=== PATIENT | male | born 1950 | race Caucasian/White ===

== ENCOUNTER 2017-05-10 10:13 | Inpatient (IN) ==
--- NOTE | 2017-05-10 10:55 | Emergency Department Note ---
Wound/Laceration HPI - General Chief Complaint: Wound/Laceration Stated Complaint: toe wound Time Seen by Provider: 05/10/17 10:20 Source: patient Mode of arrival: ambulatory Limitations: no limitations - History of Present Illness HPI Narrative: 66-year-old male presents with left second toe that is purple and draining blood. States he is not diabetic but has neuropathy and saw Dr. Smart last Friday and had a callus removed on the plantar aspect of his foot. He has been having his changed the dressing and that has been going well but he has had swelling in his second and third toes for the last 2 or 3 days. He states that this morning his second toe was very swollen and he noticed it was purple. He states on the way here it started to burst open with bloody drainage. There is are also erythema to the dorsum of the foot. He states it feels better after its burst. He has not been taking antibiotics. He states the swelling in his lower extremity might be a little bit better. He has not had any vascular disease in his lower extremities but has had 4 bypasses and his heart. He takes Plavix for a possible stroke in 2013. - Related Data Home Medications Medication Instructions Recorded Confirmed Clopidogrel Bisulfate [Plavix] 75 mg PO DAILY 05/10/17 05/10/17 Losartan Potassium [Cozaar] 100 mg PO DAILY 05/10/17 05/10/17 Metoprolol Succinate [Toprol Xl] 12.5 mg PO DAILY 05/10/17 05/10/17 Simvastatin [Zocor] 40 mg PO HS 05/10/17 05/10/17 Allergies Allergy/AdvReac Type Severity Reaction Status Date / Time No Known Drug Allergies Allergy Unverified 05/10/17 11:06 Review of Systems All systems ED: reviewed and negative except as stated. Past Medical History - Past Medical History Medical history: Reports: coronary artery disease, hypertension Psychiatric history: Reports: no psych history Surgical history ED: Reports: coronary bypass (CABG), hip replacement, orthopedic, other (left ACL surgery) Family history: Reports: non-contributory - Social History smoking status: Former smoker Physical Exam Left foot shows circumferential discoloration of the second toe. This is a purple hue. There is a blister associated that is using sanguinous discharge. There is a smell of infection associated with it there is a 0.6 cm ulceration on the plantar aspect below the second toe nontender. The second toe is also cool on palpation. There is erythema extending up the forefoot. I was able to get a pulse with the Doppler. Nonpitting edema of the lower extremity Limitations: no limitations General appearance: alert, in no apparent distress Head: atraumatic Eye: Present: normal appearance. Absent: conjunctival injection Neck: Present: normal inspection, full ROM Chest: Present: normal inspection, symmetric chest wall rise Respiratory: Present: normal lung sounds bilaterally Cardiovascular: Present: regular rate, normal heart sounds Abdominal: Present: soft, normal bowel sounds. Absent: tenderness Neurological: Present: alert, oriented X3 Psychiatric: Present: normal affect, normal mood Skin: Present: warm, dry Course Vital Signs Temperature 97.3 F 05/10/17 10:14 Pulse Rate 73 05/10/17 10:14 Respiratory Rate 16 05/10/17 10:14 Blood Pressure 156/79 05/10/17 10:14 Pulse Oximetry (%) 97 05/10/17 10:14 Temperature 97.3 F 05/10/17 10:14 Pulse Rate 73 05/10/17 10:14 Respiratory Rate 16 05/10/17 10:14 Blood Pressure 156/79 05/10/17 10:14 Pulse Oximetry (%) 97 05/10/17 10:14 Wound/Laceration - MDM Narrative Medical decision making narrative: I talked with the patient about being diabetic since his hemoglobin A1c was 9.1 and his blood sugar today was 303. He states he has had blood work yearly and was may be borderline diabetic on his last check. His questions were answered regarding type 2 diabetes. I stated that he needed to have tight sugar control while in the hospital to help with healing. Dr. Barton saw the patient and will be doing surgery once the infection has improved. He will be admitted by the hospitalist - Lab Data Lab results reviewed: Yes I reviewed the patient's lab results. Result diagrams: 05/10/17 10:54 05/10/17 10:54 Lab Results 05/10/17 05/10/17 05/10/17 Range/Units 10:43 10:43 10:54 WBC 11.8 H (4.5-11.0) K/mcL RBC 4.33 L (4.50-5.90) M/mcL Hgb 13.6 (13.5-16.5) g/dL Hct 39.5 L (41.0-55.0) % MCV 91.2 (80.0-100.0) fL MCH 31.3 (26.0-34.0) pg MCHC 34.3 (31.0-36.0) g/dL RDW 12.5 (11.5-14.5) % Plt Count 264 (140-440) K/mcL MPV 7.6 (7.4-10.4) fL Total Counted 100 Seg Neutrophils % 83 H (38-78) % Band Neutrophils % 2 (0-10) % Lymphocytes % 9 L (15-49) % Monocytes % (Manual) 6 (1-12) % Platelet Estimate Normal (NORMAL) RBC Morphology Abnorm A (NORMAL) Polychromasia 1+ A (NONE SEEN) PT 14.2 (11.9-14.5) sec INR 1.1 (0.9-1.1) VBG Lactic Acid (0.5-2.2) mmol/L Sodium (133-145) mmol/L Potassium (3.3-5.1) mmol/L Chloride (96-108) mmol/L Carbon Dioxide (22-30) mmol/L Anion Gap (8-16) BUN (8-23) mg/dl Creatinine (0.7-1.2) mg/dl GFR Calculation Glucose (70-105) mg/dL Hemoglobin A1c 9.1 H (4.0-6.0) % HGB Estim Average Glucose 214 mg/dL Calcium (8.6-10.4) mg/dl Total Bilirubin (0.0-1.0) mg/dL AST (0-37) U/l ALT (0-40) U/l Alkaline Phosphatase (39-117) U/L C-Reactive Protein (0.0-0.8) mg/dl Total Protein (5.9-8.4) gm/dL Albumin (3.2-5.2) gm/dL Globulin (2.2-3.7) gm/dL Albumin/Globulin Ratio (1.0-2.3) TSH 1.42 (0.27-5.01) uIU/ml 05/10/17 05/10/17 Range/Units 10:54 10:54 WBC (4.5-11.0) K/mcL RBC (4.50-5.90) M/mcL Hgb (13.5-16.5) g/dL Hct (41.0-55.0) % MCV (80.0-100.0) fL MCH (26.0-34.0) pg MCHC (31.0-36.0) g/dL RDW (11.5-14.5) % Plt Count (140-440) K/mcL MPV (7.4-10.4) fL Total Counted Seg Neutrophils % (38-78) % Band Neutrophils % (0-10) % Lymphocytes % (15-49) % Monocytes % (Manual) (1-12) % Platelet Estimate (NORMAL) RBC Morphology (NORMAL) Polychromasia (NONE SEEN) PT (11.9-14.5) sec INR (0.9-1.1) VBG Lactic Acid 1.7 (0.5-2.2) mmol/L Sodium 132 L (133-145) mmol/L Potassium 4.1 (3.3-5.1) mmol/L Chloride 96 (96-108) mmol/L Carbon Dioxide 22 (22-30) mmol/L Anion Gap 14.0 (8-16) BUN 10 (8-23) mg/dl Creatinine 0.8 (0.7-1.2) mg/dl GFR Calculation 92 Glucose 330 H (70-105) mg/dL Hemoglobin A1c (4.0-6.0) % HGB Estim Average Glucose mg/dL Calcium 9.0 (8.6-10.4) mg/dl Total Bilirubin 0.8 (0.0-1.0) mg/dL AST 10 (0-37) U/l ALT 12 (0-40) U/l Alkaline Phosphatase 51 (39-117) U/L C-Reactive Protein 29.8 H (0.0-0.8) mg/dl Total Protein 6.6 (5.9-8.4) gm/dL Albumin 3.3 (3.2-5.2) gm/dL Globulin 3.3 (2.2-3.7) gm/dL Albumin/Globulin Ratio 1.0 (1.0-2.3) TSH (0.27-5.01) uIU/ml - Radiology Data Radiology results reviewed: Yes I reviewed the patient's radiology results. No evidence of osteo Disposition Pt seen by MOTOR VEHICLES SUPERVISOR/PA only: No Clinical Impression: New onset type 2 diabetes mellitus, Gangrene due to peripheral vascular disease , Diabetic foot infection Disposition: Xfer As Inpt ([facility]) Condition: Fair
[2017-05-10 11:27] LABS: Mean Cell Volume 91.2 fL (80.0-100.0); Mean Corpuscular HGB Conc 34.3 g/dL (31.0-36.0); Mean Corpuscular Hemoglobin 31.3 pg (26.0-34.0); Platelet Count 264 K/mcL (140-440); RBC 4.33 M/mcL (4.50-5.90); Red Cell Distribution Width 12.5 % (11.5-14.5)
[2017-05-10] MEDS ORDERED: VANCOMYCIN 1,000 MG in 0.9 % SODIUM CHLORIDE 250 ML IV ONE (11:38)
[2017-05-10 11:44] LABS: Estimated Average Glucose(eAG) 214 mg/dL; Hemoglobin A1C 9.1 % HGB (4.0-6.0)
--- NOTE | 2017-05-10 11:46 | XRay Report ---
CLINICAL INFORMATION: Second toe infection COMPARISON: None. FINDINGS: There is no specific radiographic evidence for osteomyelitis. Mild metatarsus abductus appreciated. 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 Moderate degenerative changes noted in the talonavicular joint with dorsal marginal spurring. Other Joint spaces are normal in width and alignment without arthritic change. There is mild forefoot soft tissue swelling. IMPRESSION: No specific radiographic evidence of osteomyelitis. 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 Please correlate with hindfoot immobility on physical exam. Other chronic changes - as described Interpreted and Authenticated by: Dre Shaw 05/10/17
[2017-05-10 11:47] LABS: ALT/SGPT 12 U/l (0-40); Albumin 3.3 gm/dL (3.2-5.2); Alkaline Phosphatase 51 U/L (39-117); Band Neutrophils % 2 % (0-10); Blood Urea Nitrogen 10 mg/dl (8-23); C-Reactive Protein 29.8 mg/dl (0.0-0.8); Lymphocytes % 9 % (15-49); Monocytes % (Manual) 6 % (1-12); Platelet Estimate NORMAL (NORMAL); RBC Morphology ABNORM (NORMAL); Segmented Neutrophils % 83 % (38-78)
[2017-05-10] MEDS ORDERED: INSULIN REGULAR, HUMAN 1 UNIT/0.01 ML UNIT SQ ONE ×2 (12:14→12:16)
--- NOTE | 2017-05-10 12:49 | Internal Med History&Physical ---
Medical - H&P: HPI Patient information: Note initiated : 05/10/17 at 12:46 pm Service Date, if different from initiated Date: [] Patient: Cecy Mendoza 66 y/o M admitted on for toe wound. Chief Complaint: [] History of present illness: Mr. Mendoza is a 66 year old man who apparently visited with podiatry 4 days ago for a callus on his foot, and had that filed down. Over the last 2 or 3 days she has had increased swelling of his foot and second and third toes, and today the second toe was purple, so he presented to the emergency room for evaluation. The patient is a very poor historian. He says he has had a callus on the bottom of his foot with a hole in it for several weeks. He saw a sap senior developer last week who filed it down, and he said he almost immediately started having pain and swelling by the next day. He has been keeping the foot elevated hoping that would help. When he awakened this morning his foot was even more swollen and red, and his second toe had turned blue. He says it has been quite painful for the past [address] into the emergency room he started to have bloody drainage from the toe. Otherwise, he does not think he has been having fever or chills. He does have intermittent headaches, for which she has been taking Tylenol and Aleve, but it is not clear how chronic those are. Patient does not have a primary care doctor. He says his previous doctor retired about 5 years ago and he never got a new doctor. He does check in with his denture laboratory technician once a year or so. That is now Dr. Nobles over in [place]. He says no one has ever told him in the past that his blood sugar was elevated. Patient denies known history of diabetes, but ER evaluation reveals marked hyperglycemia and elevated hemoglobin A1c today. He otherwise denies skin changes, new ear symptoms or sinus symptoms, sore throat or cough, chest pain or palpitations. He does have mild dyspnea on exertion, which is chronic. He denies abdominal pain, nausea or vomiting, constipation or bright red blood per rectum. He notes he did have diarrhea about 2 weeks ago but that resolved. He denies dysuria. Past medical history: Coronary artery disease, status post MS in 2007, followed by four-vessel bypass. Hypertension obesity Hyperlipidemia ? TIA Surgical history: Coronary artery bypass Hip replacement Left ACL surgery Medications: Aspirin 81 mg daily Plavix 75 mg daily Losartan 100 mg daily Metoprolol 12.5 mg daily Zocor 40 mg nightly Allergies: No known drug allergies Family history: Patient said his mother had heart disease, but lived to be 90. His father in his 90s and also had a history of heart disease. His brother had some kind of stomach cancer. He has a sister but cannot recall her medical history. Social history: Patient says he smoked from the age of 16 until about 38 and then quit. He drinks about 2 beers per day. He does not use drugs. He lives with his . He has 2 children who live in [place]. Medical - H&P: Meds Home Medications Medication Instructions Recorded Confirmed Type Aspirin [Adult Low Dose Aspirin EC] 81 mg PO DAILY 05/10/17 05/10/17 History Clopidogrel Bisulfate [Plavix] 75 mg PO DAILY 05/10/17 05/10/17 History Losartan Potassium [Cozaar] 100 mg PO DAILY 05/10/17 05/10/17 History Metoprolol Succinate [Toprol Xl] 12.5 mg PO DAILY 05/10/17 05/10/17 History Simvastatin [Zocor] 40 mg PO HS 05/10/17 05/10/17 History Allergies Allergy/AdvReac Type Severity Reaction Status Date / Time No Known Drug Allergies Allergy Unverified 05/10/17 11:06 Medical - H&P: Exam - Constitutional Vitals: Temp Pulse Resp BP Pulse Ox 97.3 F 73 16 156/79 97 05/10/17 10:14 05/10/17 10:14 05/10/17 10:14 05/10/17 10:14 05/10/17 10:14 On exam, he is an elderly overweight white male in no acute distress. Head: Normocephalic, atraumatic. Eyes: PERRLA, EOMI, anicteric. Ears: TMs and canals are clear. Pharynx: Teeth are in good repair. Pharynx is somewhat crowded. Mucosa appears normal. Neck: Circumference is very large. There is no obvious JVD, thyromegaly, lymphadenopathy, bruits. Cardiac exam: Shows regular rate and rhythm with normal S1 and S2, without murmurs, rubs, gallops. Lungs: Clear to auscultation, without rales, rhonchi, wheezes. Abdomen: Is obese, but soft and nontender, without obvious masses. Extremities: Lower extremity shows no significant skin cyanosis, clubbing, edema. [place] left lower extremity: Left foot is markedly swollen, red, hot to the touch. Toe is black and necrotic appearing. Sole of the foot shows a shallow ulcer over the second or third metatarsal head. Neurologic: Patient is alert and oriented. Cranial nerves are grossly intact. Motor exam is grossly nonfocal. Skin exam: Other than his foot, shows no obvious rashes or other worrisome lesions. Medical - H&P: Reslt - Labs CBC & Chem 7: 05/10/17 10:54 05/10/17 10:54 Labs: Short CBC 05/10/17 Range/Units 10:54 WBC 11.8 H (4.5-11.0) K/mcL Hgb 13.6 (13.5-16.5) g/dL Hct 39.5 L (41.0-55.0) % Plt Count 264 (140-440) K/mcL BMP 05/10/17 10:54 Sodium 132 L Potassium 4.1 Chloride 96 Carbon Dioxide 22 BUN 10 Creatinine 0.8 Glucose 330 H Calcium 9.0 Liver Function 05/10/17 Range/Units 10:54 Total Bilirubin 0.8 (0.0-1.0) mg/dL AST 10 (0-37) U/l ALT 12 (0-40) U/l Alkaline Phosphatase 51 (39-117) U/L Albumin 3.3 (3.2-5.2) gm/dL May 10: Pro time 14, INR 1.1 next Lactic acid is normal at 1.7 Hemoglobin A1c elevated at 9.1% CRP is elevated at 29 TSH normal at 1.42 Gram stain of toe discharge: Is rare polys, many red blood cells, rare gram- positive cocci in pairs X X-ray of the left foot: 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 Signs of osteomyelitis. Medical - H&P: A/P (1) Cellulitis in diabetic foot Current visit: Yes Status: Acute (2) New onset type 2 diabetes mellitus Current visit: Yes Status: Acute (3) Coronary artery disease Current visit: Yes Status: Chronic (4) Hypertension Current visit: Yes Status: Chronic (5) Obesity (BMI 30-39.9) Current visit: Yes Status: Chronic - Narrative A/P Narrative: #1. Infectious disease. Patient presents with signs and symptoms of acute foot cellulitis, likely related to recent podiatric surgery. He now appears to have possible gangrene of the second toe. -Admit for IV antibiotics, Zosyn plus vancomycin pending cultures.. -Patient has been evaluated by , who will likely do surgery tomorrow or Friday. -Wound care -Serial labs. 2. Endocrine. Patient presents with previously undiagnosed diabetes, likely type II, with marked hyperglycemia and associated pseudohyponatremia. -Start Lantus plus sliding scale insulin. Be able to transition him to other oral hypoglycemics prior to discharge. -Start metformin. -diabetes education, nutrition education. -Obesity should also be addressed. 3. Cardiac. History of coronary disease and hypertension. -Continue losartan, metoprolol, Zocor. -Consider holding Plavix prior to surgery. Resume as soon as possible. Subcu heparin in the meantime. -Patient reports he also takes a baby aspirin every day. -Continue above medications for hypertension. Monitor. 4. CODE STATUS: No code. His will act as his POA. 5. DVT prophylaxis: Subcu heparin. 6. Obesity Patient is at increased risk for obesity related illnesses, such as sleep apnea. He is strongly encouraged to establish care with a new primary care physician, and to have testing for this. Today's visit took approximately 60 minutes, to review his case with the ER MD, review test results, interview and examine him, and write orders.
[2017-05-10] MEDS ORDERED: INSULIN REGULAR, HUMAN 1 UNIT/0.01 ML UNIT ONE (12:58)
[2017-05-10] MEDS: 0.9 % SODIUM CHLORIDE 1,000 ML IV SCH ×2 (14:07→17:13)
[2017-05-10] MEDS ORDERED: ALBUTEROL SULFATE 2.5 MG/3 ML NEBULIZER NEB PRN (14:49)
[2017-05-10] MEDS ORDERED: DOCUSATE SODIUM 100 MG CAPSULE PO PRN (14:49)
[2017-05-10] MEDS ORDERED: ACETAMINOPHEN 325 MG TABLET PO PRN (14:49)
[2017-05-10] MEDS ORDERED: MAGNESIUM HYDROXIDE 30 ML ORAL.SUSP PO PRN (14:49)
[2017-05-10] MEDS ORDERED: DEXTROSE 31 GM ORAL.SUSP PO PRN (14:49)
[2017-05-10] MEDS ORDERED: HYDROcodone/APAP 5/325MG TABLET PO PRN (14:49)
[2017-05-10] MEDS ORDERED: CALCIUM CARBONATE 500 MG TAB.CHEW CHEWED PRN (14:49)
[2017-05-10] MEDS ORDERED: DEXTROSE 50% 50 ML VIAL IV PRN (14:49)
[2017-05-10] MEDS ORDERED: VANCOMYCIN PER PHARMACY IV SCH (14:49)
[2017-05-10] MEDS ORDERED: VANCOMYCIN 500 MG in 0.9 % SODIUM CHLORIDE 100 ML IV ONE (15:15)
[2017-05-10] MEDS: POTASSIUM CHLORIDE 20 MEQ in 0.45 % SODIUM CHLORIDE 1,000 ML IV SCH (15:42)
[2017-05-10] MEDS: INSULIN GLARGINE, HUMAN 1 UNIT/0.01 ML SQ SCH ×2 (16:01→20:17)
[2017-05-10] MEDS: INSULIN LISPRO 1 UNIT/0.01 ML UNIT SQ SCH ×3 (16:01→22:56)
[2017-05-10] MEDS: 0.9 % SODIUM CHLORIDE 10 ML SYRINGE IV SCH ×2 (16:01→20:26)
[2017-05-10] MEDS: metFORMIN 500 MG TABLET PO SCH (17:04)
[2017-05-10] MEDS: PIPERACILLIN SODIUM/TAZOBACTAM 3.375 GM in DEXTROSE 5% IN WATER 50 ML IV SCH ×3 (17:05→23:46)
--- NOTE | 2017-05-10 18:49 | General Surgery Consult Note ---
History of Present Illness Patient information: Note initiated : 05/10/17 at 6:47 pm Service Date, if different from initiated Date: [] Patient: Cecy Mendoza 66 y/o M admitted on 05/10/17 for toe wound. Chief Complaint: [] Consult date: 05/10/17 Reason for consult: wound care (SEPSIS. CSSSI Left foot with cellulitis extending up to ankle and infected plantar neuropathic ulcer under 2 toe with wet gangrene of toe.) Requesting physician: Deanna Grant History of present illness: Patient underwent a debridement of a neuropathic DFU and callous under LEFT anterior plantar aspect of mid foot 4 days ago. This resulted in soft tissue swelling, pain and discomfort with drainage of hemo serous fluid from base of 2nd toe. The toe became purple and gangrenous. Patient has h/o of GA in 2007 followed by CABG and possible TIA in past. He is on Plavix. He denies knowledge of being a diabetic. I saw him for a consult in ER along with PA this afternoon. He is now admitted to hospitalist service and started on IV antibiotics, insulin coverage for his untreated diabetes, At this time wound care will consist of topical Betadine ointment and dry gauze dressings along with pain management and elevation of foot. NWB on left foot . I spoke with patient and his at length about INITIAL management to control blood sugars, hydration and IV antibiotics. To be followed by surgery later and with HBO before or after surgery. Following him closely and monitoring progress. Medications and Allergies Home Medications Medication Instructions Recorded Confirmed Type Aspirin [Adult Low Dose Aspirin EC] 81 mg PO DAILY 05/10/17 05/10/17 History Clopidogrel Bisulfate [Plavix] 75 mg PO DAILY 05/10/17 05/10/17 History Losartan Potassium [Cozaar] 100 mg PO DAILY 05/10/17 05/10/17 History Metoprolol Succinate [Toprol Xl] 12.5 mg PO DAILY 05/10/17 05/10/17 History Simvastatin [Zocor] 40 mg PO HS 05/10/17 05/10/17 History Allergies Allergy/AdvReac Type Severity Reaction Status Date / Time No Known Drug Allergies Allergy Unverified 05/10/17 11:06 Exam Temp Pulse Resp BP Pulse Ox 97.7 F 76 18 146/81 99 05/10/17 16:00 05/10/17 16:00 05/10/17 16:00 05/10/17 16:00 05/10/17 16:00 - General physical appearance well developed, well nourished, no distress, obese - Eyes PERRL, normal ocular movement - ENT normal pinna, normal nares, normal mucosa, no congestion - Head Head exam IM: Present: atraumatic, normal inspection, normocephalic - Neck no masses, no bruits, trachea midline, no venous distension - Cardiovascular Cardiovascular exam IM: Present: normal rate and rhythm - Respiratory normal expansion, normal respiratory effort, clear to auscultation - Abdomen Abdomen: Present: soft, non tender, bowel sounds - Integumentary Present: other (CELLULITIS LEFT FOOT with infected left anterior plantar neuropathic ulcer and wet gangrene of second toe,) - Neurologic Present: other (Uncontrolled diabetes with neuropathy . NO focal localizing neurological findings. Detailed examination NOT done.) - Musculoskeletal Present: other (NON weight bearing LEFT foot . Infected DFU plantar LEFT antrior .) - Psychiatric Present: oriented to time, oriented to person, oriented to place, speech is normal, other (DENIES knowledge of being a diabetic. NO PCP for over past few years. ) Results - Labs 05/10/17 10:54 05/10/17 10:54 Abnormal lab results 05/10/17 05/10/17 05/10/17 Range/Units 10:43 10:54 10:54 WBC 11.8 H (4.5-11.0) K/mcL RBC 4.33 L (4.50-5.90) M/mcL Hct 39.5 L (41.0-55.0) % Seg Neutrophils % 83 H (38-78) % Lymphocytes % 9 L (15-49) % RBC Morphology Abnorm A (NORMAL) Polychromasia 1+ A (NONE SEEN) Sodium 132 L (133-145) mmol/L Glucose 330 H (70-105) mg/dL Hemoglobin A1c 9.1 H (4.0-6.0) % HGB C-Reactive Protein 29.8 H (0.0-0.8) mg/dl Diabetes panel 05/10/17 05/10/17 Range/Units 10:43 10:54 Sodium 132 L (133-145) mmol/L Potassium 4.1 (3.3-5.1) mmol/L Chloride 96 (96-108) mmol/L Carbon Dioxide 22 (22-30) mmol/L BUN 10 (8-23) mg/dl Creatinine 0.8 (0.7-1.2) mg/dl Glucose 330 H (70-105) mg/dL Hemoglobin A1c 9.1 H (4.0-6.0) % HGB Calcium 9.0 (8.6-10.4) mg/dl AST 10 (0-37) U/l ALT 12 (0-40) U/l Alkaline Phosphatase 51 (39-117) U/L Total Protein 6.6 (5.9-8.4) gm/dL Albumin 3.3 (3.2-5.2) gm/dL Thyroid panel 05/10/17 Range/Units 10:43 TSH 1.42 (0.27-5.01) uIU/ml Calcium panel 05/10/17 Range/Units 10:54 Calcium 9.0 (8.6-10.4) mg/dl Albumin 3.3 (3.2-5.2) gm/dL Pituitary panel 05/10/17 05/10/17 Range/Units 10:43 10:54 Sodium 132 L (133-145) mmol/L Potassium 4.1 (3.3-5.1) mmol/L Chloride 96 (96-108) mmol/L Carbon Dioxide 22 (22-30) mmol/L BUN 10 (8-23) mg/dl Creatinine 0.8 (0.7-1.2) mg/dl Glucose 330 H (70-105) mg/dL Calcium 9.0 (8.6-10.4) mg/dl TSH 1.42 (0.27-5.01) uIU/ml Adrenal panel 05/10/17 Range/Units 10:54 Sodium 132 L (133-145) mmol/L Potassium 4.1 (3.3-5.1) mmol/L Chloride 96 (96-108) mmol/L Carbon Dioxide 22 (22-30) mmol/L BUN 10 (8-23) mg/dl Creatinine 0.8 (0.7-1.2) mg/dl Glucose 330 H (70-105) mg/dL Calcium 9.0 (8.6-10.4) mg/dl Total Bilirubin 0.8 (0.0-1.0) mg/dL AST 10 (0-37) U/l ALT 12 (0-40) U/l Alkaline Phosphatase 51 (39-117) U/L Total Protein 6.6 (5.9-8.4) gm/dL Albumin 3.3 (3.2-5.2) gm/dL All other labs normal. Assessment and Plan (1) Sepsis due to cellulitis Status: Acute Priority: High (2) Sepsis due to cellulitis Assessment: Sepsis syndrome due to CSSSI infected DFU, Cellulitis and Gangrene of left second toe. Plan: See orders: IV fluids, IV antibiotics, Local wound care . Monitor progress preoperatively to be followed by surgery . Spoke with patient and his about plan of treatment. Risk, benefits and complications discussed at length. Further instructions and recommendations as condition evolves. Status: Acute Priority: High Comment: Patient with preexisting co morbidities, uncontrolled diabetes and is on anticoagulants with plavix.
[2017-05-10] MEDS: HYDROmorphone 2 MG/ML SYRINGE IV PRN (19:09)
[2017-05-10] MEDS ORDERED: HYDROmorphone 2 MG/ML SYRINGE ONE (19:13)
[2017-05-10] MEDS: oxyCODONE/APAP 5/325MG TABLET PO PRN ×2 (19:53→23:47)
[2017-05-10] MEDS: SIMVASTATIN 40 MG TABLET PO SCH (20:20)
[2017-05-10] MEDS ORDERED: BISACODYL 5 MG TABLET PO SCH (21:00)
[2017-05-10] MEDS ORDERED: HEPARIN 5,000 UNIT/ML VIAL SQ SCH (21:00)
[2017-05-10] MEDS: ZOLPIDEM 5 MG TABLET PO PRN ×2 (21:45→23:00)
[2017-05-10] MEDS: ONDANSETRON 4 MG/2 ML VIAL IV PRN (21:53)
[2017-05-11] MEDS: VANCOMYCIN 1,500 MG in 0.9 % SODIUM CHLORIDE 500 ML IV SCH ×3 (00:24→20:16)
[2017-05-11] MEDS: POTASSIUM CHLORIDE 20 MEQ in 0.45 % SODIUM CHLORIDE 1,000 ML IV SCH ×4 (00:35→16:29)
[2017-05-11] MEDS: HYDROmorphone 2 MG/ML SYRINGE IV PRN ×2 (02:30→22:18)
[2017-05-11] MEDS: INSULIN LISPRO 1 UNIT/0.01 ML UNIT SQ SCH ×6 (02:35→20:34)
[2017-05-11] MEDS: oxyCODONE/APAP 5/325MG TABLET PO PRN ×4 (03:59→23:52)
[2017-05-11] MEDS: PIPERACILLIN SODIUM/TAZOBACTAM 3.375 GM in DEXTROSE 5% IN WATER 50 ML IV SCH ×4 (05:54→23:52)
[2017-05-11] MEDS: 0.9 % SODIUM CHLORIDE 10 ML SYRINGE IV SCH ×3 (05:56→20:35)
[2017-05-11 06:23] LABS: Basophils # (Auto) 0 K/mcL (0.0-0.3); Basophils % (Auto) 0.1 % (0.0-2.0); Eosinophils # (Auto) 0.2 K/mcL (0.0-0.7); Eosinophils % (Auto) 1.4 % (0.0-7.0); Granulocytes % (Auto) 81.4 % (38.0-78.0); Lymphocytes # (Auto) 1.2 K/mcL (1.5-4.8); Lymphocytes % (Auto) 10.4 % (15.5-49.0); Mean Cell Volume 92.3 fL (80.0-100.0); Mean Corpuscular HGB Conc 34.2 g/dL (31.0-36.0); Mean Corpuscular Hemoglobin 31.6 pg (26.0-34.0); Monocytes # (Auto) 0.7 K/mcL (0.1-0.9); Monocytes % (Auto) 6.7 % (1.0-12.0); Platelet Count 263 K/mcL (140-440); RBC 3.79 M/mcL (4.50-5.90); Red Cell Distribution Width 12.6 % (11.5-14.5)
[2017-05-11 06:51] LABS: ALT/SGPT 11 U/l (0-40); Albumin 2.6 gm/dL (3.2-5.2); Albumin/Globulin Ratio 0.8 (1.0-2.3); Alkaline Phosphatase 52 U/L (39-117); Bilirubin,Direct < 0.2 mg/dL (0.0-0.3); Blood Urea Nitrogen 9 mg/dl (8-23); C-Reactive Protein 27.4 mg/dl (0.0-0.8); Gamma Glutamyl Transpeptidase 44 U/L (8-61); Magnesium 1.7 mg/dL (1.6-2.5); Uric Acid 2.5 mg/dL (2.5-8.0)
[2017-05-11] MEDS: ONDANSETRON 4 MG/2 ML VIAL IV PRN (07:37)
[2017-05-11] MEDS: METOPROLOL SUCCINATE 25 MG TAB.XL.24H PO SCH (08:50)
[2017-05-11] MEDS: LOSARTAN 50 MG TABLET PO SCH (08:50)
[2017-05-11] MEDS: CLOPIDOGREL 75 MG TABLET PO SCH ×2 (08:50→10:29)
[2017-05-11] MEDS: INSULIN GLARGINE, HUMAN 1 UNIT/0.01 ML SQ SCH ×2 (08:51→20:33)
[2017-05-11] MEDS: metFORMIN 500 MG TABLET PO SCH ×2 (08:51→17:30)
--- NOTE | 2017-05-11 11:33 | Internal Med Progress Note ---
Medical - PN: Subj Patient information: Note initiated : 05/11/17 at 11:33 am Service Date, if different from initiated Date: [] Patient: Cecy Mendoza 66 y/o M admitted on 05/10/17 for toe wound. Chief Complaint: [] Interval history: May 10, 2017: History of present illness: Mr. Mendoza is a 66 year old man who apparently visited with podiatry 4 days ago for a callus on his foot, and had that filed down. Over the last 2 or 3 days she has had increased swelling of his foot and second and third toes, and today the second toe was purple, so he presented to the emergency room for evaluation. The patient is a very poor historian. He says he has had a callus on the bottom of his foot with a hole in it for several weeks. He saw a hospice bereavement coordinator last week who filed it down, and he said he almost immediately started having pain and swelling by the next day. He has been keeping the foot elevated hoping that would help. When he awakened this morning his foot was even more swollen and red, and his second toe had turned blue. He says it has been quite painful for the past [address] into the emergency room he started to have bloody drainage from the toe. Otherwise, he does not think he has been having fever or chills. He does have intermittent headaches, for which she has been taking Tylenol and Aleve, but it is not clear how chronic those are. Patient does not have a primary care doctor. He says his previous doctor retired about 5 years ago and he never got a new doctor. He does check in with his manager private once a year or so. That is now Dr. Nobles over in [place]. He says no one has ever told him in the past that his blood sugar was elevated. Patient denies known history of diabetes, but ER evaluation reveals marked hyperglycemia and elevated hemoglobin A1c today. He otherwise denies skin changes, new ear symptoms or sinus symptoms, sore throat or cough, chest pain or palpitations. He does have mild dyspnea on exertion, which is chronic. He denies abdominal pain, nausea or vomiting, constipation or bright red blood per rectum. He notes he did have diarrhea about 2 weeks ago but that resolved. He denies dysuria. May 11: Today, the patient notes that he felt quite queasy after breakfast, and vomited his breakfast back up. Otherwise, he says he is feeling okay. Left foot pain is well controlled. He denies fever or chills, chest pain or palpitations, shortness of breath or cough , abdominal pain, diarrhea, dysuria. - Constitutional Vitals: Vital Signs Temp Pulse Resp BP Pulse Ox 98.1 F 77 12 116/73 95 05/11/17 07:44 05/11/17 07:44 05/11/17 07:44 05/11/17 07:44 05/11/17 07:44 Period Temp Pulse Resp BP Sys/Buchanan Pulse Ox Last 24 Hr 97.7 F-100.2 F 63-86 12-20 105-168/64-81 93-100 Intake and Output 05/10/17 05/11/17 05/11/17 21:59 05:59 13:59 Intake Total 2120 / 2120 2535 / 2535 800 / 800 Output Total 1900 / 1900 800 / 800 300 / 300 Balance 220 / 220 1735 / 1735 500 / 500 Weight 285 lb Intake & Output: Intake & Output 05/10/17 05/11/17 05/11/17 21:59 05:59 13:59 Intake Total 2120 / 2120 2535 / 2535 800 / 800 Output Total 1900 / 1900 800 / 800 300 / 300 Balance 220 / 220 1735 / 1735 500 / 500 Weight 285 lb Intake: IV 1200 / 1200 1560 / 1560 Zosyn 3.375 gm In Dextrose 5% 100 / 100 50 / 50 in Water 50 ml @ 100 mls/hr IV Q6H [facility] Rx#:[id number] Potassium Chloride 20 Meq In 1010 / 1010 Sodium Chloride 0.45% 1,000 ml @ 125 mls/hr IV .Q8H5M [facility] Rx#: [id number] Vancomycin 500 mg In Sodium 100 / 100 Chloride 0.9% 100 ml @ 100 mls/ hr IV ONCE ONE Rx#:[id number] Vancomycin 1,500 mg In Sodium 500 / 500 Chloride 0.9% 500 ml @ 333.3 mls/hr IV Q12H [facility] Rx#: [id number] Oral 920 / 920 975 / 975 800 / 800 Output: Void Amount 1700 / 1700 800 / 800 Emesis 200 / 200 300 / 300 Other: Meal Dinner Breakfast Percent of Meal Consumed 100% 75% Feeding Ability Independent # Voids 1 1 On exam, he is sitting up in a chair, with his left foot elevated. He is in no acute distress. Neck is supple without obvious lymphadenopathy or JVD. Cardiac exam shows regular rate and rhythm. Lungs are clear to auscultation. Abdomen is obese, but soft and nontender. Extremities: Right foot appears normal. Left foot: Is still quite swollen, with a necrotic appearing second toe. The erythema of the foot dorsum does appear a bit fainter today. Neurologic exam is grossly nonfocal. Medical - PN: Obj Da - Labs CBC & Chem 7: 05/11/17 04:00 05/11/17 04:00 Labs: Abnormal Lab Results 05/11/17 05/11/17 05/10/17 04:00 04:00 10:54 WBC 11.2 H RBC 3.79 L Hgb 12.0 L Hct 34.9 L Gran % 81.4 H Lymph % (Auto) 10.4 L Gran # 9.1 H Lymph # (Auto) 1.2 L Seg Neutrophils % Lymphocytes % RBC Morphology Polychromasia Sodium 131 L 132 L Glucose 234 H 330 H Hemoglobin A1c Calcium 8.2 L C-Reactive Protein 27.4 H 29.8 H Albumin 2.6 L Albumin/Globulin Ratio 0.8 L 05/10/17 05/10/17 10:54 10:43 WBC 11.8 H RBC 4.33 L Hgb Hct 39.5 L Gran % Lymph % (Auto) Gran # Lymph # (Auto) Seg Neutrophils % 83 H Lymphocytes % 9 L RBC Morphology Abnorm A Polychromasia 1+ A Sodium Glucose Hemoglobin A1c 9.1 H Calcium C-Reactive Protein Albumin Albumin/Globulin Ratio May 10: CBC: White blood cell count 11,800, hematocrit 39, platelets 264,000. 83% neutrophils. 1+ polychromasia Pro time 14, INR 1.1 next Lactic acid is normal at 1.7 Hemoglobin A1c elevated at 9.1% CRP is elevated at 29 TSH normal at 1.42 Gram stain of toe discharge: Is rare polys, many red blood cells, rare gram- positive cocci in pairs X X-ray of the left foot: 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 Signs of osteomyelitis. Meds: Medications Acetaminophen (Tylenol) 650 mg PO Q6HP PRN PRN Reason: PAIN/FEVER > 101 Albuterol Sulfate (Ventolin) 2.5 mg NEB Q2HP PRN PRN Reason: Shortness Of Breath Calcium Carbonate/Glycine (Tums) 1,000 mg CHEWED Q4HP PRN PRN Reason: Dyspepsia Clopidogrel Bisulfate (Plavix) 75 mg PO DAILY [facility] Last Admin: 05/11/17 10:29 Dose: 75 mg Dextrose (Dextrose 50%) 0 ml IV UD PRN PRN Reason: Hypoglycemia Diagnostic Test (Pha) (Accu-Chek) 1 each FS ACHS [facility] Last Admin: 05/11/17 07:38 Dose: 1 each Docusate Sodium (Colace) 100 mg PO BID PRN PRN Reason: Constipation Glucose (Insta-Glucose) 15 gm PO PRN PRN PRN Reason: Hypoglycemia Hydromorphone HCl (Dilaudid) 0.5 mg IV Q6HP PRN PRN Reason: PAIN LEVEL > 6 Last Admin: 05/11/17 02:30 Dose: 0.5 mg Piperacillin Sod/Tazobactam (Sod 3.375 gm/ Dextrose) 50 mls @ 100 mls/hr IV Q6H [facility] Last Admin: 05/11/17 05:54 Dose: 100 mls/hr Potassium Chloride 20 meq/ (Sodium Chloride) 1,010 mls @ 125 mls/hr IV .Q8H5M [facility] Last Admin: 05/11/17 07:39 Dose: Not Given Vancomycin HCl 1,500 mg/ (Sodium Chloride) 500 mls @ 333.3 mls/hr IV Q12H [facility] Last Admin: 05/11/17 10:33 Dose: 250 mls/hr Insulin Glargine (Lantus) 5 unit SQ BID [facility] Last Admin: 05/11/17 08:51 Dose: 5 unit Insulin Human Lispro (Humalog) 0 unit SQ [facility] PRN Reason: Protocol Last Admin: 05/11/17 08:51 Dose: 3 unit Losartan Potassium (Cozaar) 100 mg PO DAILY [facility] Last Admin: 05/11/17 08:50 Dose: 100 mg Magnesium Hydroxide (Milk Of Magnesia) 30 ml PO DAILYP PRN PRN Reason: Constipation [facility] Last Admin: 05/11/17 08:51 Dose: 500 mg Metoprolol Succinate (Toprol Xl) 12.5 mg PO DAILY [facility] Last Admin: 05/11/17 08:50 Dose: 12.5 mg Ondansetron HCl (Zofran) 4 mg IV Q6HP PRN PRN Reason: Nausea And Vomiting Last Admin: 05/11/17 07:37 Dose: 4 mg Oxycodone/Acetaminophen (Percocet 5-325 Mg) 1 - 2 tab PO Q4HP PRN PRN Reason: PAIN LEVEL 3-6 Last Admin: 05/11/17 03:59 Dose: 2 tab Pneumococcal Polyvalent Vaccine (Pneumovax 23) 0.5 ml IM .ONCE ONE Stop: 05/12/17 10:01 Simvastatin (Zocor) 40 mg PO HS [facility] Last Admin: 05/10/17 20:20 Dose: 40 mg Sodium Chloride (Saline Flush) 10 ml IV Q8 [facility] Last Admin: 05/11/17 05:56 Dose: Not Given Vancomycin HCl (Vancomycin Per Pharmacy) 1 order IV UD [facility] Zolpidem Tartrate (Ambien) 5 mg PO HSP PRN PRN Reason: Insomnia Last Admin: 05/10/17 23:00 Dose: 5 mg Medical - PN: A/P - Time Spent With Patient Total time spent is greater than 50% in coordination of care (as documented) at patient's floor/unit and/or counseling patient: 25 - 35 minutes (1) Cellulitis in diabetic foot Status: Acute Current Visit: Yes (2) New onset type 2 diabetes mellitus Status: Acute Current Visit: Yes (3) Coronary artery disease Status: Chronic Current Visit: Yes (4) Hypertension Status: Chronic Current Visit: Yes (5) Obesity (BMI 30-39.9) Status: Chronic Current Visit: Yes - Narrative A/P Narrative: #1. Infectious disease. Patient presents with signs and symptoms of acute foot cellulitis, likely related to recent podiatric surgery. He now appears to have possible gangrene of the second toe. -Admitted for IV antibiotics, Zosyn plus vancomycin pending cultures.. Leukocytosis is somewhat improved today. -Patient has been evaluated by , who will likely do surgery Friday. -Wound care -Serial labs. 2. Endocrine. Patient presents with previously undiagnosed diabetes, likely type II, with marked hyperglycemia and associated pseudohyponatremia. -Start Lantus plus sliding scale insulin. Be able to transition him to other oral hypoglycemics prior to discharge. Accu-Cheks are ranging from 235-268. -Started metformin. -diabetes education, nutrition education. -Obesity should also be addressed. 3. Cardiac. History of coronary disease and hypertension. -Continue losartan, metoprolol, Zocor. - said we do not need to hold his Plavix. . -Patient reports he also takes a baby aspirin every day. -Hypertension. Continue above medications . Monitor. 4. CODE STATUS: Full code. His will act as his POA. 5. DVT prophylaxis: Subcu heparin. 6. Obesity Patient is at increased risk for obesity related illnesses, such as sleep apnea. He is strongly encouraged to establish care with a new primary care physician, and to have testing for this. #7. GI. Patient had nausea and vomiting today. This may be related to medications. Continue to monitor. Medical - PN: Qual - VTE Deep Vein Thrombosis/Pulmonary Embolism Present on Admission: No
--- NOTE | 2017-05-11 11:40 | General Surgery Progress Note ---
Subjective Patient reports: no new complaints Narrative: Note initiated : 05/11/17 at 11:35 am Service Date, if different from initiated Date: [] Patient: Cecy Mendoza 66 y/o M admitted on 05/10/17 for toe wound. Chief Complaint: []Hyperglycemia improving. On IV antibiotics. Pain controlled. Objective Temp Pulse Resp BP Pulse Ox 98.1 F 77 12 116/73 95 05/11/17 07:44 05/11/17 07:44 05/11/17 07:44 05/11/17 07:44 05/11/17 07:44 AVSS. No changes HERMANN. Cellulitis Left foot is improving. Left 2 nd toe gangrene is stable. NO odor - Additional Data Intake & Output - Last 24 hours: Intake & Output 05/09/17 05/10/17 05/11/17 05/12/17 05:59 05:59 05:59 05:59 Intake Total 4905 / 4905 800 / 800 Output Total 2700 / 2700 300 / 300 Balance 2205 / 2205 500 / 500 Weight 285 lb - Labs 05/11/17 04:00 05/11/17 04:00 Diabetes panel 05/10/17 05/10/17 05/11/17 Range/Units 10:43 10:54 04:00 Sodium 132 L 131 L (133-145) mmol/L Potassium 4.1 4.0 (3.3-5.1) mmol/L Chloride 96 96 (96-108) mmol/L Carbon Dioxide 22 22 (22-30) mmol/L BUN 10 9 (8-23) mg/dl Creatinine 0.8 0.7 (0.7-1.2) mg/dl Glucose 330 H 234 H (70-105) mg/dL Hemoglobin A1c 9.1 H (4.0-6.0) % HGB Calcium 9.0 8.2 L (8.6-10.4) mg/dl AST 10 12 (0-37) U/l ALT 12 11 (0-40) U/l Alkaline Phosphatase 51 52 (39-117) U/L Total Protein 6.6 6.0 (5.9-8.4) gm/dL Albumin 3.3 2.6 L (3.2-5.2) gm/dL Triglycerides 97 (<150) mg/dl Thyroid panel 05/10/17 Range/Units 10:43 TSH 1.42 (0.27-5.01) uIU/ml Calcium panel 05/10/17 05/11/17 Range/Units 10:54 04:00 Calcium 9.0 8.2 L (8.6-10.4) mg/dl Phosphorus 3.5 (2.7-4.5) mg/dL Albumin 3.3 2.6 L (3.2-5.2) gm/dL Pituitary panel 05/10/17 05/10/17 05/11/17 Range/Units 10:43 10:54 04:00 Sodium 132 L 131 L (133-145) mmol/L Potassium 4.1 4.0 (3.3-5.1) mmol/L Chloride 96 96 (96-108) mmol/L Carbon Dioxide 22 22 (22-30) mmol/L BUN 10 9 (8-23) mg/dl Creatinine 0.8 0.7 (0.7-1.2) mg/dl Glucose 330 H 234 H (70-105) mg/dL Calcium 9.0 8.2 L (8.6-10.4) mg/dl TSH 1.42 (0.27-5.01) uIU/ml Adrenal panel 05/10/17 05/11/17 Range/Units 10:54 04:00 Sodium 132 L 131 L (133-145) mmol/L Potassium 4.1 4.0 (3.3-5.1) mmol/L Chloride 96 96 (96-108) mmol/L Carbon Dioxide 22 22 (22-30) mmol/L BUN 10 9 (8-23) mg/dl Creatinine 0.8 0.7 (0.7-1.2) mg/dl Glucose 330 H 234 H (70-105) mg/dL Calcium 9.0 8.2 L (8.6-10.4) mg/dl Total Bilirubin 0.8 0.6 (0.0-1.0) mg/dL AST 10 12 (0-37) U/l ALT 12 11 (0-40) U/l Alkaline Phosphatase 51 52 (39-117) U/L Total Protein 6.6 6.0 (5.9-8.4) gm/dL Albumin 3.3 2.6 L (3.2-5.2) gm/dL Assessment and Plan (1) Sepsis due to cellulitis Status: Acute Current Visit: Yes (2) Sepsis due to cellulitis Problem details: Patient with preexisting co morbidities, uncontrolled diabetes and is on anticoagulants with plavix. Status: Acute Current Visit: Yes - Time Spent With Patient Total time spent is greater than 50% in coordination of care (as documented) at patient's floor/unit and/or counseling patient: Assessment: DFU with gangrene LEFT 2 nd toe and SIRS . On IV hydration and IV antibiotics. Needs Left 2 nd toe amputation, Plan: OR Left foot 2 nd toe amputation. and trim toe nails Spoke with patient and his at length. All questions answered. 25 - 35 minutes
[2017-05-11] MEDS: SIMVASTATIN 40 MG TABLET PO SCH (20:34)
[2017-05-12] MEDS: POTASSIUM CHLORIDE 20 MEQ in 0.45 % SODIUM CHLORIDE 1,000 ML IV SCH ×4 (00:56→12:52)
[2017-05-12 04:23] LABS: Appearance,Urine CLEAR; Bacteria,Urine 0 /hpf (0); Bilirubin,Urine NEG (NEG); Color,Urine STRAW; Glucose,Urine (UA) NEGATIVE (NEG); Leukocyte Esterase,Urine NEG /uL (NEG); Mucus,Urine FEW /hpf (0); Nitrate,Urine NEG (NEG); Protein,Urine NEG (NEG); Specific Gravity,Urine 1.005 (1.000-1.035); Urine Blood 0.2 mg/dL (<0.03); Urine RBC 6 /hpf (0-1); Urine Squamous Epithelial Cell 0 /hpf (0-4); Urine WBC 1 /hpf (0-4); Urobilinogen,Urine NEG (NEG)
[2017-05-12 05:02] LABS: Basophils # (Auto) 0 K/mcL (0.0-0.3); Basophils % (Auto) 0.4 % (0.0-2.0); Eosinophils # (Auto) 0.5 K/mcL (0.0-0.7); Eosinophils % (Auto) 5.4 % (0.0-7.0); Lymphocytes # (Auto) 1.6 K/mcL (1.5-4.8); Lymphocytes % (Auto) 16.3 % (15.5-49.0); Mean Cell Volume 91.2 fL (80.0-100.0); Mean Corpuscular HGB Conc 34.8 g/dL (31.0-36.0); Mean Corpuscular Hemoglobin 31.8 pg (26.0-34.0); Monocytes % (Auto) 9.9 % (1.0-12.0); Platelet Count 301 K/mcL (140-440); RBC 3.73 M/mcL (4.50-5.90); Red Cell Distribution Width 12.5 % (11.5-14.5)
[2017-05-12 05:13] LABS: ALT/SGPT 11 U/l (0-40); Albumin 2.8 gm/dL (3.2-5.2); Albumin/Globulin Ratio 0.9 (1.0-2.3); Alkaline Phosphatase 46 U/L (39-117); Bilirubin,Direct < 0.2 mg/dL (0.0-0.3); Blood Urea Nitrogen 10 mg/dl (8-23); C-Reactive Protein 22.9 mg/dl (0.0-0.8); Gamma Glutamyl Transpeptidase 49 U/L (8-61); Magnesium 1.7 mg/dL (1.6-2.5); Uric Acid 2.6 mg/dL (2.5-8.0)
[2017-05-12] MEDS: PIPERACILLIN SODIUM/TAZOBACTAM 3.375 GM in DEXTROSE 5% IN WATER 50 ML IV SCH ×3 (05:18→19:12)
[2017-05-12] MEDS: 0.9 % SODIUM CHLORIDE 10 ML SYRINGE IV SCH ×3 (05:50→21:32)
[2017-05-12] MEDS: metFORMIN 500 MG TABLET PO SCH ×2 (07:24→16:37)
[2017-05-12] MEDS: CLOPIDOGREL 75 MG TABLET PO SCH (07:25)
[2017-05-12] MEDS: INSULIN GLARGINE, HUMAN 1 UNIT/0.01 ML SQ SCH ×2 (07:36→21:30)
[2017-05-12] MEDS: INSULIN LISPRO 1 UNIT/0.01 ML UNIT SQ SCH ×4 (07:36→21:31)
[2017-05-12] MEDS: LOSARTAN 50 MG TABLET PO SCH (08:20)
[2017-05-12] MEDS: METOPROLOL SUCCINATE 25 MG TAB.XL.24H PO SCH (08:20)
[2017-05-12] MEDS: VANCOMYCIN 1,500 MG in 0.9 % SODIUM CHLORIDE 500 ML IV SCH ×2 (09:45→21:29)
[2017-05-12] MEDS ORDERED: PNEUMOCOCCAL 23-VAL P-SAC VAC 0.5 ML VIAL IM ONE (10:00)
[2017-05-12] MEDS ORDERED: DEXAMETHASONE 10 MG/ML VIAL IV ONE (10:45)
[2017-05-12] MEDS ORDERED: fentaNYL 100 MCG/2 ML VIAL IV ONE (10:45)
[2017-05-12] MEDS ORDERED: KETAMINE 100 MG/ML ML IV ONE (10:45)
[2017-05-12] MEDS ORDERED: MIDAZOLAM 2 MG/2 ML VIAL IV ONE (10:45)
[2017-05-12] MEDS ORDERED: LIDOCAINE HCL/PF 100 MG/5 ML SYRINGE IV ONE (10:45)
[2017-05-12] MEDS ORDERED: ONDANSETRON 4 MG/2 ML VIAL IV ONE (10:45)
[2017-05-12] MEDS ORDERED: PHENYLEPHRINE 10 MG/ML VIAL IV ONE (10:45)
[2017-05-12] MEDS ORDERED: PROPOFOL 200 MG/20 ML VIAL IV ONE (10:45)
[2017-05-12] MEDS ORDERED: GENTAMICIN SULFATE 800 MG/20 ML VIAL IR ONE (11:11)
[2017-05-12] MEDS ORDERED: LIDOCAINE 1% 20 ML, BUPIVACAINE 0.5% 20 ML SQ ONE (11:11)
[2017-05-12] MEDS ORDERED: CLINDAMYCIN 600 MG/4 ML VIAL IR ONE (11:11)
[2017-05-12] MEDS ORDERED: BACITRACIN 50,000 UNIT VIAL IR ONE (11:11)
[2017-05-12] MEDS ORDERED: LACTATED RINGERS 250 ML IV PRN (11:27)
[2017-05-12] MEDS ORDERED: NALOXONE HCL 0.4 MG/ML VIAL IV PRN (11:27)
[2017-05-12] MEDS ORDERED: BENZOCAINE/MENTHOL 1 LOZENGE PO PRN (11:27)
[2017-05-12] MEDS ORDERED: FLUMAZENIL 0.1 MG/ML ML IV PRN (11:27)
[2017-05-12] MEDS ORDERED: MEPERIDINE 25 MG/ML SYRINGE IV PRN (11:27)
[2017-05-12] MEDS ORDERED: ONDANSETRON 4 MG/2 ML VIAL IV PRN (11:27)
[2017-05-12] MEDS ORDERED: MEPERIDINE 50 MG/ML SYRINGE IM PRN (11:27)
[2017-05-12] MEDS ORDERED: PROMETHAZINE 25 MG/ML VIAL IV PRN (11:27)
[2017-05-12] MEDS ORDERED: PROMETHAZINE 25 MG/ML VIAL IM PRN (11:27)
[2017-05-12] MEDS ORDERED: ePHEDrine 50 MG/ML AMPUL IV PRN (11:27)
[2017-05-12] MEDS ORDERED: IPRATROPIUM/ALBUTEROL 3 ML AMPUL.NEB NEB PRN (11:27)
[2017-05-12] MEDS ORDERED: diphenhydrAMINE 50 MG/ML VIAL IV PRN (11:27)
[2017-05-12] MEDS ORDERED: HYDROmorphone 2 MG/ML SYRINGE IV PRN (11:27)
[2017-05-12] MEDS ORDERED: LACTATED RINGERS 1,000 ML IV SCH (11:30)
[2017-05-12] MEDS: fentaNYL 100 MCG/2 ML VIAL IV PRN ×2 (12:03→12:13)
--- NOTE | 2017-05-12 13:29 | General Surgery Procedure Note ---
Date of procedure: Note initiated : 05/12/17 at 1:26 pm Service Date, if different from initiated Date: [] Pre-op diagnosis: SIRS, Gangrene Left 2 toe, CAD, IDDM Post-op diagnosis: same Procedure: Transmetatarsal amputation of Left 2 nd toe. Wound packed open Findings: Correction of uncontrolled diabetes, Hyperosmolar state, Necrotizing skin and soft tissue infection (Strep ) Left 2 toe. EBL < 30 ml Anesthesia: GLMA Surgeon: Bryon Pringle Estimated blood loss: 30 Pathology: other Description of procedure: Excisional debridement of skin and soft tissue, Transmetatarsal amputation of Left 2 nd toe Condition: stable Disposition: floor (Wound packed open. For adjuvant HBO treatment, LATER For dressing change, 2 nd look in OR on 05/14/2017. OPERATION WELL TOLERATED.)
[2017-05-12] MEDS: glipiZIDE 5 MG TABLET PO SCH (16:37)
--- NOTE | 2017-05-12 17:44 | Internal Med Progress Note ---
Medical - PN: Subj Patient information: Note initiated : 05/12/17 at 5:40 pm Service Date, if different from initiated Date: [] Patient: Cecy Mendoza 66 y/o M admitted on 05/10/17 for Toe Wound/Cellulitis& Gangrene of Lt 2nd Toe,Sepsis. Chief Complaint: [] Interval history: May 10, 2017: History of present illness: Mr. Mendoza is a 66 year old man who apparently visited with podiatry 4 days ago for a callus on his foot, and had that filed down. Over the last 2 or 3 days she has had increased swelling of his foot and second and third toes, and today the second toe was purple, so he presented to the emergency room for evaluation. The patient is a very poor historian. He says he has had a callus on the bottom of his foot with a hole in it for several weeks. He saw a dress cutter last week who filed it down, and he said he almost immediately started having pain and swelling by the next day. He has been keeping the foot elevated hoping that would help. When he awakened this morning his foot was even more swollen and red, and his second toe had turned blue. He says it has been quite painful for the past [address] into the emergency room he started to have bloody drainage from the toe. Otherwise, he does not think he has been having fever or chills. He does have intermittent headaches, for which she has been taking Tylenol and Aleve, but it is not clear how chronic those are. Patient does not have a primary care doctor. He says his previous doctor retired about 5 years ago and he never got a new doctor. 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 That is now Dr. Nobles over in [place]. He says no one has ever told him in the past that his blood sugar was elevated. Patient denies known history of diabetes, but ER evaluation reveals marked hyperglycemia and elevated hemoglobin A1c today. He otherwise denies skin changes, new ear symptoms or sinus symptoms, sore throat or cough, chest pain or palpitations. He does have mild dyspnea on exertion, which is chronic. He denies abdominal pain, nausea or vomiting, constipation or bright red blood per rectum. He notes he did have diarrhea about 2 weeks ago but that resolved. He denies dysuria. May 11: Today, the patient notes that he felt quite queasy after breakfast, and vomited his breakfast back up. Otherwise, he says he is feeling okay. Left foot pain is well controlled. He denies fever or chills, chest pain or palpitations, shortness of breath or cough , abdominal pain, diarrhea, dysuria. May 12: Today, the patient says he is feeling better. He has not had any further nausea or vomiting, however he is also n.p.o. prior to surgery. He is having less pain in his foot, which he now rates as a 2 out of 10. He denies fever chills, chest pain or palpitations, shortness of breath, abdominal pain, nausea or vomiting, diarrhea or constipation or dysuria. -He says so far he is tolerating the oral diabetic meds, and has learned how to check his blood sugar and inject insulin. He does not feel it is too overwhelming. Accu-Cheks are ranging from about 172-270 currently. - Constitutional Vitals: Vital Signs Temp Pulse Resp BP Pulse Ox 98.7 F 87 16 139/64 93 05/12/17 16:53 05/12/17 13:30 05/12/17 16:53 05/12/17 16:53 05/12/17 16:53 Period Temp Pulse Resp BP Sys/Buchanan Pulse Ox Last 24 Hr 98.0 F-100.7 F 73-92 11-20 104-140/53-72 92-95 Intake and Output 05/12/17 05/12/17 05/12/17 05:59 13:59 21:59 Intake Total 0 / 0 2560 / 2560 Output Total 2575 / 2575 1750 / 1750 925 / 925 Balance -465 / -465 810 / 810 -925 / -925 Weight 288 lb Patient Weight 05/13/17 05:59 Weight 288 lb Intake & Output: Intake & Output 05/12/17 05/12/17 05/12/17 05:59 13:59 21:59 Intake Total 2110 / 2110 2560 / 2560 Output Total 2575 / 2575 1750 / 1750 925 / 925 Balance -465 / -465 810 / 810 -925 / -925 Weight 288 lb Intake: IV 1610 / 1610 2560 / 2560 Zosyn 3.375 gm In Dextrose 5% 100 / 100 50 / 50 in Water 50 ml @ 100 mls/hr IV Q6H [facility] Rx#:[id number] Potassium Chloride 20 Meq In 1010 / 1010 1010 / 1010 Sodium Chloride 0.45% 1,000 ml @ 125 mls/hr IV .Q8H5M [facility] Rx#: [id number] Vancomycin 1,500 mg In Sodium 500 / 500 500 / 500 Chloride 0.9% 500 ml @ 333.3 mls/hr IV Q12H [facility] Rx#: [id number] Oral 500 / 500 Output: Void Amount 2575 / 2575 1700 / 1700 925 / 925 Estimated Blood Loss 50 / 50 Other: # Voids 1 1 Neck is supple without obvious lymphadenopathy or JVD. Cardiac exam shows regular rate and rhythm. Lungs are clear to auscultation. Abdomen is obese, but soft and nontender. Extremities: Right foot appears normal. Left foot: Is still quite swollen, with a necrotic appearing second toe. The necrotic appearance seems to be spreading today to the third toe as well. There is a fair amount of bloody drainage noted on the bandage today as well. The erythema of the foot dorsum does appear a bit fainter today. Neurologic exam is grossly nonfocal. Medical - PN: Obj Da - Labs CBC & Chem 7: 05/12/17 04:05 05/12/17 04:05 Labs: Abnormal Lab Results 05/12/17 05/12/17 05/12/17 04:05 04:05 02:50 WBC 10.1 RBC 3.73 L Hgb 11.9 L Hct 34.1 L MPV 7.3 L Gran % Lymph % (Auto) Gran # Lymph # (Auto) Daniels # (Auto) 1.0 H Seg Neutrophils % Lymphocytes % RBC Morphology Polychromasia Sodium Glucose 169 H Hemoglobin A1c Calcium 8.5 L C-Reactive Protein 22.9 H Albumin 2.8 L Albumin/Globulin Ratio 0.9 L Urine Occult Blood 0.2 A Urine RBC 6 H 05/11/17 05/11/17 05/10/17 04:00 04:00 10:54 WBC 11.2 H RBC 3.79 L Hgb 12.0 L Hct 34.9 L MPV Gran % 81.4 H Lymph % (Auto) 10.4 L Gran # 9.1 H Lymph # (Auto) 1.2 L Daniels # (Auto) Seg Neutrophils % Lymphocytes % RBC Morphology Polychromasia Sodium 131 L 132 L Glucose 234 H 330 H Hemoglobin A1c Calcium 8.2 L C-Reactive Protein 27.4 H 29.8 H Albumin 2.6 L Albumin/Globulin Ratio 0.8 L Urine Occult Blood Urine RBC 05/10/17 05/10/17 10:54 10:43 WBC 11.8 H RBC 4.33 L Hgb Hct 39.5 L MPV Gran % Lymph % (Auto) Gran # Lymph # (Auto) Daniels # (Auto) Seg Neutrophils % 83 H Lymphocytes % 9 L RBC Morphology Abnorm A Polychromasia 1+ A Sodium Glucose Hemoglobin A1c 9.1 H Calcium C-Reactive Protein Albumin Albumin/Globulin Ratio Urine Occult Blood Urine RBC May 12: Urinalysis: Shows pH of 6, 0.2 of occult blood, 6 red blood cells, otherwise normal. Blood cultures are negative so far. May 10: CBC: White blood cell count 11,800, hematocrit 39, platelets 264,000. 83% neutrophils. 1+ polychromasia Pro time 14, INR 1.1 next Lactic acid is normal at 1.7 Hemoglobin A1c elevated at 9.1% CRP is elevated at 29 TSH normal at 1.42 Gram stain of toe discharge: Is rare polys, many red blood cells, rare gram- positive cocci in pairs . Culture is growing 2 types of strep agalactiae. Susceptibility not routinely performed. 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 Signs of osteomyelitis. Next EKG: Shows sinus rhythm at a rate of 70 with first-degree AV block. Right bundle branch block. Meds: Medications Acetaminophen (Tylenol) 650 mg PO Q6HP PRN PRN Reason: PAIN/FEVER > 101 Albuterol Sulfate (Ventolin) 2.5 mg NEB Q2HP PRN PRN Reason: Shortness Of Breath Calcium Carbonate/Glycine (Tums) 1,000 mg CHEWED Q4HP PRN PRN Reason: Dyspepsia Clopidogrel Bisulfate (Plavix) 75 mg PO DAILY [facility] Last Admin: 05/12/17 07:25 Dose: Not Given Dextrose (Dextrose 50%) 0 ml IV UD PRN PRN Reason: Hypoglycemia Diagnostic Test (Pha) (Accu-Chek) 1 each FS ACHS [facility] Last Admin: 05/12/17 16:28 Dose: 1 each Docusate Sodium (Colace) 100 mg PO BID PRN PRN Reason: Constipation Glipizide (Glucotrol) 2.5 mg PO BIDAC [facility] Last Admin: 05/12/17 16:37 Dose: 2.5 mg Glucose (Insta-Glucose) 15 gm PO PRN PRN PRN Reason: Hypoglycemia Hydromorphone HCl (Dilaudid) 0.5 mg IV Q6HP PRN PRN Reason: PAIN LEVEL > 6 Last Admin: 05/11/17 22:18 Dose: 0.5 mg Piperacillin Sod/Tazobactam (Sod 3.375 gm/ Dextrose) 50 mls @ 100 mls/hr IV Q6H [facility] Last Infusion: 05/12/17 13:47 Dose: Infused Potassium Chloride 20 meq/ (Sodium Chloride) 1,010 mls @ 125 mls/hr IV .Q8H5M [facility] Last Admin: 05/12/17 12:52 Dose: 125 mls/hr Vancomycin HCl 1,500 mg/ (Sodium Chloride) 500 mls @ 333.3 mls/hr IV Q12H [facility] Last Infusion: 05/12/17 11:16 Dose: Infused Insulin Glargine (Lantus) 5 unit SQ BID [facility] Last Admin: 05/12/17 07:36 Dose: Not Given Insulin Human Lispro (Humalog) 0 unit SQ [facility] PRN Reason: Protocol Last Admin: 05/12/17 16:38 Dose: 4 unit Losartan Potassium (Cozaar) 100 mg PO DAILY [facility] Last Admin: 05/12/17 08:20 Dose: 100 mg Magnesium Hydroxide (Milk Of Magnesia) 30 ml PO DAILYP PRN PRN Reason: Constipation Metformin HCl (Glucophage) 500 mg PO BIDCC [facility] Last Admin: 05/12/17 16:37 Dose: 500 mg Metoprolol Succinate (Toprol Xl) 12.5 mg PO DAILY [facility] Last Admin: 05/12/17 08:20 Dose: 12.5 mg Ondansetron HCl (Zofran) 4 mg IV Q6HP PRN PRN Reason: Nausea And Vomiting Last Admin: 05/11/17 07:37 Dose: 4 mg Oxycodone/Acetaminophen (Percocet 5-325 Mg) 1 - 2 tab PO Q4HP PRN PRN Reason: PAIN LEVEL 3-6 Last Admin: 05/11/17 23:52 Dose: 2 tab Simvastatin (Zocor) 40 mg PO HS [facility] Last Admin: 05/11/17 20:34 Dose: 40 mg Sodium Chloride (Saline Flush) 10 ml IV Q8 [facility] Last Admin: 05/12/17 13:12 Dose: Not Given Vancomycin HCl (Vancomycin Per Pharmacy) 1 order IV UD [facility] Zolpidem Tartrate (Ambien) 5 mg PO HSP PRN PRN Reason: Insomnia Last Admin: 05/10/17 23:00 Dose: 5 mg Medical - PN: A/P - Time Spent With Patient Total time spent is greater than 50% in coordination of care (as documented) at patient's floor/unit and/or counseling patient: 25 - 35 minutes (1) Cellulitis in diabetic foot Status: Acute Current Visit: Yes (2) New onset type 2 diabetes mellitus Status: Acute Current Visit: Yes (3) Coronary artery disease Status: Chronic Current Visit: Yes (4) Hypertension Status: Chronic Current Visit: Yes (5) Obesity (BMI 30-39.9) Status: Chronic Current Visit: Yes - Narrative A/P Narrative: #1. Infectious disease. Patient presents with signs and symptoms of acute foot cellulitis, likely related to recent podiatric surgery. He now appears to have possible gangrene of the second toe. -Admitted for IV antibiotics, Zosyn plus vancomycin pending cultures.. Leukocytosis is somewhat improved today. -Patient has been evaluated by , to have surgery today. I believe he also started on hyperbaric oxygen therapy. -Wound care -Serial labs. 2. Endocrine. Patient presents with previously undiagnosed diabetes, likely type II, with marked hyperglycemia and associated pseudohyponatremia. -Start Lantus plus sliding scale insulin. Be able to transition him to other oral hypoglycemics prior to discharge. Accu-Cheks are ranging from 170-270. -Started metformin. Glipizide also added. -diabetes education, nutrition education. -Obesity should also be addressed. 3. Cardiac. History of coronary disease and hypertension. -Continue losartan, metoprolol, Zocor. - said we do not need to hold his Plavix. . -Patient reports he also takes a baby aspirin every day. -Hypertension. Continue above medications . Monitor. 4. CODE STATUS: Full code. His will act as his POA. 5. DVT prophylaxis: Subcu heparin. 6. Obesity Patient is at increased risk for obesity related illnesses, such as sleep apnea. He is strongly encouraged to establish care with a new primary care physician, and to have testing for this. #7. GI. Patient had nausea and vomiting yesterday. So far today he has been fine. Medical - PN: Qual - VTE Deep Vein Thrombosis/Pulmonary Embolism Present on Admission: No
[2017-05-12] MEDS: oxyCODONE/APAP 5/325MG TABLET PO PRN ×2 (21:31→23:24)
[2017-05-12] MEDS: SIMVASTATIN 40 MG TABLET PO SCH (21:31)
[2017-05-13] MEDS: PIPERACILLIN SODIUM/TAZOBACTAM 3.375 GM in DEXTROSE 5% IN WATER 50 ML IV SCH ×5 (00:02→23:32)
[2017-05-13] MEDS: POTASSIUM CHLORIDE 20 MEQ in 0.45 % SODIUM CHLORIDE 1,000 ML IV SCH ×4 (00:35→23:36)
[2017-05-13] MEDS: ZOLPIDEM 5 MG TABLET PO PRN ×2 (01:14→20:53)
[2017-05-13] MEDS: 0.9 % SODIUM CHLORIDE 10 ML SYRINGE IV SCH ×3 (05:21→20:54)
[2017-05-13] MEDS: INSULIN LISPRO 1 UNIT/0.01 ML UNIT SQ SCH ×4 (06:52→20:42)
[2017-05-13] MEDS: glipiZIDE 5 MG TABLET PO SCH ×2 (07:36→17:00)
[2017-05-13] MEDS: metFORMIN 500 MG TABLET PO SCH ×2 (07:37→17:00)
[2017-05-13 08:03] LABS: ALT/SGPT 14 U/l (0-40); Albumin 2.7 gm/dL (3.2-5.2); Albumin/Globulin Ratio 0.8 (1.0-2.3); Alkaline Phosphatase 53 U/L (39-117); Bilirubin,Direct 0.2 mg/dL (0.0-0.3); Blood Urea Nitrogen 12 mg/dl (8-23); C-Reactive Protein 16.6 mg/dl (0.0-0.8); Gamma Glutamyl Transpeptidase 54 U/L (8-61); Magnesium 2.1 mg/dL (1.6-2.5); Uric Acid 2.6 mg/dL (2.5-8.0)
[2017-05-13 08:41] LABS: Basophils # (Auto) 0.1 K/mcL (0.0-0.3); Basophils % (Auto) 0.6 % (0.0-2.0); Eosinophils # (Auto) 0.1 K/mcL (0.0-0.7); Eosinophils % (Auto) 0.7 % (0.0-7.0); Granulocytes % (Auto) 79.5 % (38.0-78.0); Lymphocytes # (Auto) 1.3 K/mcL (1.5-4.8); Lymphocytes % (Auto) 10.7 % (15.5-49.0); Mean Cell Volume 89.5 fL (80.0-100.0); Mean Corpuscular HGB Conc 34.8 g/dL (31.0-36.0); Mean Corpuscular Hemoglobin 31.1 pg (26.0-34.0); Monocytes % (Auto) 8.5 % (1.0-12.0); Platelet Count 338 K/mcL (140-440); RBC 3.75 M/mcL (4.50-5.90); Red Cell Distribution Width 11.8 % (11.5-14.5)
--- NOTE | 2017-05-13 09:14 | Operative Note ---
DATE OF OPERATION: 05/12/2017 PREOPERATIVE DIAGNOSES: 1. Sepsis. 2. Uncontrolled diabetes, now improving. 3. Gangrene, left second toe. 4. Comorbid medical problems: Insulin-dependent diabetes, untreated in the past. Coronary artery disease status post CABG. POSTOPERATIVE DIAGNOSES: 1. Sepsis. 2. Uncontrolled diabetes, now improving. 3. Gangrene, left second toe. 4. Comorbid medical problems: Insulin-dependent diabetes, untreated in the past. Coronary artery disease status post CABG. OPERATION: Transmetatarsal amputation of the left second toe. Wound was debrided, lavaged, and packed open. SURGEON: Bryon Pringle M.D. FINDINGS: Wet gangrene involving the left second toe with blood blister extending proximally above the MP joint. Pitting edema of the foot around the area of cellulitis. There was soft tissue necrosis around the toe in the interdigital clefts and around the head of the metatarsal bone. PROCEDURE NOTE: After obtaining informed consent, patient was taken to the operating room. Timeout was called. He was already started on intravenous antibiotics. General anesthesia was administered via laryngeal mask airway. The left lower extremity was widely cleaned, prepped and draped in the standard fashion after taking preoperative photographs. The incision site was marked out encompassing the gangrenous area along the plantar aspect anterior to the callus which was debrided one week earlier by a podiatric surgeon outside of this facility. Proximally, the incision was taken in a ray fashion towards the interdigital clefts between the second and first and second and third toes. Incision was made with #15 scalpel blade starting on the plantar aspect and extending superiorly and proximally. The necrotized tissue was excised with pickup and Linares scissors. Tissue samples were obtained for Gram stain and cultures. The soft tissue was very edematous, necrotic, and was easily cut with pickup and scissors. This process had extended proximally around the MP joint and the head of the metatarsal bone. We cleaned the periosteum over the neck of the metatarsal. This was lifted proximally with the periosteal elevator. The oscillating saw was used to transect the affected metatarsal bone. This was removed along with the dissected toe and its soft tissue attachments. Additional debridement of the skin and subcutaneous tissue was carried out until all the nonviable debris was excised. Bright red capillary oozing was noted from the wound edges. We now proceeded to carry out pulse lavage irrigation. The first 3 liter bag contained normal saline. The second 3 liter bag contained antibiotics clindamycin, gentamicin, and polymyxin. Hemostasis was satisfactory. The field was clean. Completion photographs were taken. The wound was packed open with Xeroform gauze and Betadine-soaked gauze. It was reinforced with AMD gauze, Kerlix bandage, ABD pad, Coban and an Bigg bandage. The procedure was well tolerated. Blood loss was under 30 mL. Count of swabs, instruments and needles was reported to be correct. The patient was taken to the recovery room in stable condition. Postoperatively, I spoke with the patient and his . The plan is to give this patient adjuvant hyperbaric therapy. He will have a treatment this evening and two additional treatments tomorrow morning and evening. I plan to bring this patient back to the operating room on 05/14/2017, for a dressing change, reassessment of the wound. It is possible that the third toe if nonviable will also need to be amputated. This was explained to the patient and family and his . They understand and agree. VD:reji Job ID: [id number] Doc ID: [id number] Bryon PRO
[2017-05-13] MEDS: VANCOMYCIN 1,500 MG in 0.9 % SODIUM CHLORIDE 500 ML IV SCH ×2 (10:28→20:41)
[2017-05-13] MEDS: METOPROLOL SUCCINATE 25 MG TAB.XL.24H PO SCH (10:32)
[2017-05-13] MEDS: CLOPIDOGREL 75 MG TABLET PO SCH (10:32)
[2017-05-13] MEDS: LOSARTAN 50 MG TABLET PO SCH (10:32)
[2017-05-13] MEDS: INSULIN GLARGINE, HUMAN 1 UNIT/0.01 ML SQ SCH (10:34)
--- NOTE | 2017-05-13 17:31 | Internal Med Progress Note ---
Medical - PN: Subj Patient information: Note initiated : 05/13/17 at 5:29 pm Service Date, if different from initiated Date: [] Patient: Cecy Mendoza 66 y/o M admitted on 05/10/17 for Toe Wound/Cellulitis& Gangrene of Lt 2nd Toe,Sepsis. Chief Complaint: [] Interval history: May 10, 2017: History of present illness: Mr. Mendoza is a 66 year old man who apparently visited with podiatry 4 days ago for a callus on his foot, and had that filed down. Over the last 2 or 3 days she has had increased swelling of his foot and second and third toes, and today the second toe was purple, so he presented to the emergency room for evaluation. The patient is a very poor historian. He says he has had a callus on the bottom of his foot with a hole in it for several weeks. He saw a watch manufacturing supervisor last week who filed it down, and he said he almost immediately started having pain and swelling by the next day. He has been keeping the foot elevated hoping that would help. When he awakened this morning his foot was even more swollen and red, and his second toe had turned blue. He says it has been quite painful for the past [address] into the emergency room he started to have bloody drainage from the toe. Otherwise, he does not think he has been having fever or chills. He does have intermittent headaches, for which she has been taking Tylenol and Aleve, but it is not clear how chronic those are. Patient does not have a primary care doctor. He says his previous doctor retired about 5 years ago and he never got a new doctor. He does check in with his cover remover once a year or so. That is now Dr. Nobles over in [place]. He says no one has ever told him in the past that his blood sugar was elevated. Patient denies known history of diabetes, but ER evaluation reveals marked hyperglycemia and elevated hemoglobin A1c today. He otherwise denies skin changes, new ear symptoms or sinus symptoms, sore throat or cough, chest pain or palpitations. He does have mild dyspnea on exertion, which is chronic. He denies abdominal pain, nausea or vomiting, constipation or bright red blood per rectum. He notes he did have diarrhea about 2 weeks ago but that resolved. He denies dysuria. May 11: Today, the patient notes that he felt quite queasy after breakfast, and vomited his breakfast back up. Otherwise, he says he is feeling okay. Left foot pain is well controlled. He denies fever or chills, chest pain or palpitations, shortness of breath or cough , abdominal pain, diarrhea, dysuria. May 12: Today, the patient says he is feeling better. He has not had any further nausea or vomiting, however he is also n.p.o. prior to surgery. He is having less pain in his foot, which he now rates as a 2 out of 10. He denies fever chills, chest pain or palpitations, shortness of breath, abdominal pain, nausea or vomiting, diarrhea or constipation or dysuria. -He says so far he is tolerating the oral diabetic meds, and has learned how to check his blood sugar and inject insulin. He does not feel it is too overwhelming. Accu-Cheks are ranging from about 172-270 currently. May 13: The patient says he is feeling fine today. He has had hyperbaric treatment twice today. He is not having any particular pain in his foot. Otherwise he denies fever chills, chest pain or palpitations, shortness of breath, abdominal pain, nausea or vomiting or diarrhea. Accu-Cheks are ranging from 207- 251. - Constitutional Vitals: Vital Signs Temp Pulse Resp BP Pulse Ox 97.7 F 64 20 148/74 96 05/13/17 16:00 05/13/17 03:46 05/13/17 16:00 05/13/17 16:00 05/13/17 16:00 Period Temp Pulse Resp BP Sys/Buchanan Pulse Ox Last 24 Hr 97.7 F-98.7 F 64-85 20-20 125-148/63-74 93-97 Intake and Output 05/13/17 05/13/17 05/13/17 05:59 13:59 21:59 Intake Total 1700 / 1700 550 / 550 800 / 800 Output Total 2125 / 2125 1675 / 1675 Balance -425 / -425 -1125 / -1125 800 / 800 Intake & Output: Intake & Output 05/13/17 05/13/17 05/13/17 05:59 13:59 21:59 Intake Total 1700 / 1700 550 / 550 800 / 800 Output Total 2125 / 2125 1675 / 1675 Balance -425 / -425 -1125 / -1125 800 / 800 Intake: IV 600 / 600 550 / 550 Zosyn 3.375 gm In Dextrose 5% 100 / 100 50 / 50 in Water 50 ml @ 100 mls/hr IV Q6H [facility] Rx#:[id number] Vancomycin 1,500 mg In Sodium 500 / 500 500 / 500 Chloride 0.9% 500 ml @ 333.3 mls/hr IV Q12H [facility] Rx#: [id number] Oral 1100 / 1100 800 / 800 Output: Void Amount 2125 / 2125 1675 / 1675 Other: # Voids 1 1 # Bowel Movements 1 Neck is supple without obvious lymphadenopathy or JVD. Cardiac exam shows regular rate and rhythm. Lungs are clear to auscultation. Abdomen is obese, but soft and nontender. Extremities: Right foot appears normal. Left foot: Is heavily bandaged. The bandage is clean and dry. Neurologic exam is grossly nonfocal. Medical - PN: Obj Da - Labs CBC & Chem 7: 05/13/17 04:59 05/13/17 04:59 Labs: Abnormal Lab Results 05/13/17 05/13/17 05/12/17 04:59 04:59 04:05 WBC 11.9 H RBC 3.75 L Hgb 11.7 L Hct 33.6 L MPV Gran % 79.5 H Lymph % (Auto) 10.7 L Gran # 9.4 H Lymph # (Auto) 1.3 L Harding # (Auto) 1.0 H Sodium Glucose 215 H 169 H Calcium 8.5 L C-Reactive Protein 16.6 H 22.9 H Albumin 2.7 L 2.8 L Albumin/Globulin Ratio 0.8 L 0.9 L Urine Occult Blood Urine RBC 05/12/17 05/12/17 05/11/17 04:05 02:50 04:00 WBC RBC 3.73 L Hgb 11.9 L Hct 34.1 L MPV 7.3 L Gran % Lymph % (Auto) Gran # Lymph # (Auto) Harding # (Auto) 1.0 H Sodium 131 L Glucose 234 H Calcium 8.2 L C-Reactive Protein 27.4 H Albumin 2.6 L Albumin/Globulin Ratio 0.8 L Urine Occult Blood 0.2 A Urine RBC 6 H 05/11/17 04:00 WBC 11.2 H RBC 3.79 L Hgb 12.0 L Hct 34.9 L MPV Gran % 81.4 H Lymph % (Auto) 10.4 L Gran # 9.1 H Lymph # (Auto) 1.2 L Harding # (Auto) Sodium Glucose Calcium C-Reactive Protein Albumin Albumin/Globulin Ratio Urine Occult Blood Urine RBC May 10: CBC: White blood cell count 11,800, hematocrit 39, platelets 264,000. 83% neutrophils. 1+ polychromasia Pro time 14, INR 1.1 next Lactic acid is normal at 1.7 Hemoglobin A1c elevated at 9.1% CRP is elevated at 29 TSH normal at 1.42 Gram stain of toe discharge: Is rare polys, many red blood cells, rare gram- positive cocci in pairs. Culture shows strep agalactiae group B, 2 strains. 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 Signs of osteomyelitis. Meds: Medications Acetaminophen (Tylenol) 650 mg PO Q6HP PRN PRN Reason: PAIN/FEVER > 101 Albuterol Sulfate (Ventolin) 2.5 mg NEB Q2HP PRN PRN Reason: Shortness Of Breath Calcium Carbonate/Glycine (Tums) 1,000 mg CHEWED Q4HP PRN PRN Reason: Dyspepsia Clopidogrel Bisulfate (Plavix) 75 mg PO DAILY [facility] Last Admin: 05/13/17 10:32 Dose: 75 mg Dextrose (Dextrose 50%) 0 ml IV UD PRN PRN Reason: Hypoglycemia Diagnostic Test (Pha) (Accu-Chek) 1 each FS ACHS [facility] Last Admin: 05/13/17 16:25 Dose: 1 each Docusate Sodium (Colace) 100 mg PO BID PRN PRN Reason: Constipation Glipizide (Glucotrol) 2.5 mg PO BIDAC [facility] Last Admin: 05/13/17 17:00 Dose: 2.5 mg Glucose (Insta-Glucose) 15 gm PO PRN PRN PRN Reason: Hypoglycemia Hydromorphone HCl (Dilaudid) 0.5 mg IV Q6HP PRN PRN Reason: PAIN LEVEL > 6 Last Admin: 05/11/17 22:18 Dose: 0.5 mg Piperacillin Sod/Tazobactam (Sod 3.375 gm/ Dextrose) 50 mls @ 100 mls/hr IV Q6H [facility] Last Infusion: 05/13/17 12:45 Dose: Infused Potassium Chloride 20 meq/ (Sodium Chloride) 1,010 mls @ 125 mls/hr IV .Q8H5M [facility] Last Admin: 05/13/17 12:44 Dose: Not Given Vancomycin HCl 1,500 mg/ (Sodium Chloride) 500 mls @ 333.3 mls/hr IV Q12H [facility] Last Infusion: 05/13/17 11:59 Dose: Infused Insulin Glargine (Lantus) 5 unit SQ ONCE ONE Stop: 05/13/17 21:01 Insulin Glargine (Lantus) 5 unit SQ BID [facility] Insulin Human Lispro (Humalog) 0 unit SQ ACHS [facility] PRN Reason: Protocol Last Admin: 05/13/17 16:59 Dose: 3 unit Losartan Potassium (Cozaar) 100 mg PO DAILY [facility] Last Admin: 05/13/17 10:32 Dose: 100 mg Magnesium Hydroxide (Milk Of Magnesia) 30 ml PO DAILYP PRN PRN Reason: Constipation Metformin HCl (Glucophage) 500 mg PO BIDCC [facility] Last Admin: 05/13/17 17:00 Dose: 500 mg Metoprolol Succinate (Toprol Xl) 12.5 mg PO DAILY [facility] Last Admin: 05/13/17 10:32 Dose: 12.5 mg Ondansetron HCl (Zofran) 4 mg IV Q6HP PRN PRN Reason: Nausea And Vomiting Last Admin: 05/11/17 07:37 Dose: 4 mg Oxycodone/Acetaminophen (Percocet 5-325 Mg) 1 - 2 tab PO Q4HP PRN PRN Reason: PAIN LEVEL 3-6 Last Admin: 05/12/17 23:24 Dose: 1 tab Simvastatin (Zocor) 40 mg PO HS [facility] Last Admin: 05/12/17 21:31 Dose: 40 mg Sodium Chloride (Saline Flush) 10 ml IV Q8 [facility] Last Admin: 05/13/17 14:23 Dose: Not Given Vancomycin HCl (Vancomycin Per Pharmacy) 1 order IV UD [facility] Zolpidem Tartrate (Ambien) 5 mg PO HSP PRN PRN Reason: Insomnia Last Admin: 05/13/17 01:14 Dose: 5 mg Medical - PN: A/P - Time Spent With Patient Total time spent is greater than 50% in coordination of care (as documented) at patient's floor/unit and/or counseling patient: 15 - 24 minutes (1) Cellulitis in diabetic foot Status: Acute Current Visit: Yes (2) New onset type 2 diabetes mellitus Status: Acute Current Visit: Yes (3) Coronary artery disease Status: Chronic Current Visit: Yes (4) Hypertension Status: Chronic Current Visit: Yes (5) Obesity (BMI 30-39.9) Status: Chronic Current Visit: Yes - Narrative A/P Narrative: #1. Infectious disease. Patient presents with signs and symptoms of acute foot cellulitis, likely related to recent podiatric surgery. He had gangrene of the second toe. Is now status post amputation of that toe, with other debridement. He is undergoing hyperbaric treatments. -Admitted for IV antibiotics, Zosyn plus vancomycin pending cultures.. -Wound care -Serial labs. -Wound will be reexamined in the OR tomorrow. 2. Endocrine. Patient presents with previously undiagnosed diabetes, likely type II, with marked hyperglycemia and associated pseudohyponatremia. -Started Lantus plus sliding scale insulin. I hope to be able to transition him to other oral hypoglycemics prior to discharge. -Started metformin. Glipizide also added. -diabetes education, nutrition education. -Obesity should also be addressed. 3. Cardiac. History of coronary disease and hypertension. -Continue losartan, metoprolol, Zocor. - said we do not need to hold his Plavix. . -Patient reports he also takes a baby aspirin every day. -Hypertension. Continue above medications . Monitor. 4. CODE STATUS: Full code. His will act as his POA. 5. DVT prophylaxis: Subcu heparin. 6. Obesity Patient is at increased risk for obesity related illnesses, such as sleep apnea. He is strongly encouraged to establish care with a new primary care physician, and to have testing for this. #7. GI. Patient had nausea and vomiting yesterday. So far today he has been fine. Medical - PN: Qual - VTE Deep Vein Thrombosis/Pulmonary Embolism Present on Admission: No
--- NOTE | 2017-05-13 17:57 | General Surgery Progress Note ---
Subjective Patient reports: no new complaints Narrative: Note initiated : 05/13/17 at 5:54 pm Service Date, if different from initiated Date: [] Patient: Cecy Mendoza 66 y/o M admitted on 05/10/17 for Toe Wound/Cellulitis& Gangrene of Lt 2nd Toe,Sepsis. Chief Complaint: [] P O Day # 1. Doing well. Had 2 HBOT today. Checking his blood sugars and administering insulin himself. For OR on 05/14/2017 Objective Temp Pulse Resp BP Pulse Ox 97.7 F 64 20 148/74 96 05/13/17 16:00 05/13/17 03:46 05/13/17 16:00 05/13/17 16:00 05/13/17 16:00 AVSS, HERMANN No acute interval changes. Dressings Left foot CDI. - Additional Data Intake & Output - Last 24 hours: Intake & Output 05/11/17 05/12/17 05/13/17 05/14/17 05:59 05:59 05:59 05:59 Intake Total 4905 / 4905 5620 / 5620 5320 / 5320 2270 / 2270 Output Total 2700 / 2700 5725 / 5725 5525 / 5525 2425 / 2425 Balance 2205 / 2205 -105 / -105 -205 / -205 -155 / -155 Weight 285 lb 288 lb 289 lb - Labs 05/13/17 04:59 05/13/17 04:59 Diabetes panel 05/13/17 Range/Units 04:59 Sodium 138 (133-145) mmol/L Potassium 4.4 (3.3-5.1) mmol/L Chloride 101 (96-108) mmol/L Carbon Dioxide 22 (22-30) mmol/L BUN 12 (8-23) mg/dl Creatinine 0.9 (0.7-1.2) mg/dl Glucose 215 H (70-105) mg/dL Calcium 8.6 (8.6-10.4) mg/dl AST 15 (0-37) U/l ALT 14 (0-40) U/l Alkaline Phosphatase 53 (39-117) U/L Total Protein 6.0 (5.9-8.4) gm/dL Albumin 2.7 L (3.2-5.2) gm/dL Triglycerides 122 (<150) mg/dl Calcium panel 12/05/17 Range/Units 04:59 Calcium 8.6 (8.6-10.4) mg/dl Phosphorus 3.2 (2.7-4.5) mg/dL Albumin 2.7 L (3.2-5.2) gm/dL Pituitary panel 05/13/17 Range/Units 04:59 Sodium 138 (133-145) mmol/L Potassium 4.4 (3.3-5.1) mmol/L Chloride 101 (96-108) mmol/L Carbon Dioxide 22 (22-30) mmol/L BUN 12 (8-23) mg/dl Creatinine 0.9 (0.7-1.2) mg/dl Glucose 215 H (70-105) mg/dL Calcium 8.6 (8.6-10.4) mg/dl Adrenal panel 05/13/17 Range/Units 04:59 Sodium 138 (133-145) mmol/L Potassium 4.4 (3.3-5.1) mmol/L Chloride 101 (96-108) mmol/L Carbon Dioxide 22 (22-30) mmol/L BUN 12 (8-23) mg/dl Creatinine 0.9 (0.7-1.2) mg/dl Glucose 215 H (70-105) mg/dL Calcium 8.6 (8.6-10.4) mg/dl Total Bilirubin 0.3 (0.0-1.0) mg/dL AST 15 (0-37) U/l ALT 14 (0-40) U/l Alkaline Phosphatase 53 (39-117) U/L Total Protein 6.0 (5.9-8.4) gm/dL Albumin 2.7 L (3.2-5.2) gm/dL Assessment and Plan (1) Sepsis due to cellulitis Status: Acute Current Visit: Yes (2) Sepsis due to cellulitis Problem details: Patient with preexisting co morbidities, uncontrolled diabetes and is on anticoagulants with plavix. Status: Acute Current Visit: Yes - Time Spent With Patient Total time spent is greater than 50% in coordination of care (as documented) at patient's floor/unit and/or counseling patient: Assessment: Satisfactory Post operative progress. Plan: For OR on 05/14/2017 morning for dressing change, possible redebridement and +/- Left 3 rd toe amputation. SPOKE with patient and his at length. All questions answered. 15 - 24 minutes
[2017-05-13] MEDS: SIMVASTATIN 40 MG TABLET PO SCH (20:41)
[2017-05-13] MEDS: oxyCODONE/APAP 5/325MG TABLET PO PRN (20:53)
[2017-05-13] MEDS ORDERED: INSULIN GLARGINE, HUMAN 1 UNIT/0.01 ML SQ ONE (21:00)
[2017-05-14] MEDS: oxyCODONE/APAP 5/325MG TABLET PO PRN ×3 (01:02→23:54)
[2017-05-14] MEDS: PIPERACILLIN SODIUM/TAZOBACTAM 3.375 GM in DEXTROSE 5% IN WATER 50 ML IV SCH ×4 (05:17→23:44)
[2017-05-14] MEDS: 0.9 % SODIUM CHLORIDE 10 ML SYRINGE IV SCH ×3 (05:19→22:24)
[2017-05-14] MEDS: POTASSIUM CHLORIDE 20 MEQ in 0.45 % SODIUM CHLORIDE 1,000 ML IV SCH ×2 (05:20→09:30)
[2017-05-14 06:48] LABS: Basophils # (Auto) 0 K/mcL (0.0-0.3); Basophils % (Auto) 0.6 % (0.0-2.0); Eosinophils # (Auto) 0.6 K/mcL (0.0-0.7); Eosinophils % (Auto) 7.7 % (0.0-7.0); Granulocytes % (Auto) 58.9 % (38.0-78.0); Lymphocytes # (Auto) 1.9 K/mcL (1.5-4.8); Lymphocytes % (Auto) 23.9 % (15.5-49.0); Mean Cell Volume 91.1 fL (80.0-100.0); Mean Corpuscular HGB Conc 34.4 g/dL (31.0-36.0); Mean Corpuscular Hemoglobin 31.3 pg (26.0-34.0); Monocytes # (Auto) 0.7 K/mcL (0.1-0.9); Monocytes % (Auto) 8.9 % (1.0-12.0); Platelet Count 338 K/mcL (140-440); RBC 3.74 M/mcL (4.50-5.90); Red Cell Distribution Width 12.7 % (11.5-14.5)
[2017-05-14 07:10] LABS: ALT/SGPT 19 U/l (0-40); Albumin 2.9 gm/dL (3.2-5.2); Albumin/Globulin Ratio 0.9 (1.0-2.3); Alkaline Phosphatase 50 U/L (39-117); Bilirubin,Direct < 0.2 mg/dL (0.0-0.3); Blood Urea Nitrogen 16 mg/dl (8-23); C-Reactive Protein 7.1 mg/dl (0.0-0.8); Gamma Glutamyl Transpeptidase 50 U/L (8-61); Uric Acid 3.1 mg/dL (2.5-8.0)
[2017-05-14] MEDS: glipiZIDE 5 MG TABLET PO SCH ×2 (07:31→17:27)
[2017-05-14] MEDS: metFORMIN 500 MG TABLET PO SCH ×2 (07:31→17:27)
[2017-05-14] MEDS: INSULIN LISPRO 1 UNIT/0.01 ML UNIT SQ SCH ×4 (07:35→22:24)
[2017-05-14] MEDS: CLOPIDOGREL 75 MG TABLET PO SCH (08:24)
[2017-05-14] MEDS: LOSARTAN 50 MG TABLET PO SCH (08:24)
[2017-05-14] MEDS: METOPROLOL SUCCINATE 25 MG TAB.XL.24H PO SCH (08:24)
[2017-05-14] MEDS: HYDROmorphone 2 MG/ML SYRINGE IV PRN (09:25)
[2017-05-14] MEDS: VANCOMYCIN 1,500 MG in 0.9 % SODIUM CHLORIDE 500 ML IV SCH ×2 (09:29→22:04)
--- NOTE | 2017-05-14 10:58 | General Surgery Progress Note ---
Subjective Patient reports: no new complaints, other (Uneventful night. Dressing CDI. ) Narrative: Note initiated : 05/14/17 at 10:55 am Service Date, if different from initiated Date: [] Patient: Cecy Mendoza 66 y/o M admitted on 05/10/17 for Toe Wound/Cellulitis& Gangrene of Lt 2nd Toe,Sepsis. Chief Complaint: [] Objective Temp Pulse Resp BP Pulse Ox 97.3 F 65 20 139/76 97 05/14/17 07:55 05/14/17 04:00 05/14/17 07:55 05/14/17 07:55 05/14/17 07:55 AVSS. No changes HERMANN. L/E: Patient seen with Dr. Thomas Gotti, Sales And Marketing Administrator Surgeon. Dressings taken down. The wound bed is clean and granulating. NO odor. Culture Strep B. Final sensitivities awaited. Left third toe tip is pink, warm. Lab results reviewed. - Additional Data Intake & Output - Last 24 hours: Intake & Output 05/12/17 05/13/17 05/14/17 05/15/17 05:59 05:59 05:59 05:59 Intake Total 5620 / 5620 5320 / 5320 4555 / 4555 1010 / 1010 Output Total 5725 / 5725 5525 / 5525 4100 / 4100 775 / 775 Balance -105 / -105 -205 / -205 455 / 455 235 / 235 Weight 288 lb 289 lb 285 lb 8 oz - Labs 05/14/17 04:47 05/14/17 04:47 Diabetes panel 05/14/17 Range/Units 04:47 Sodium 140 (133-145) mmol/L Potassium 4.0 (3.3-5.1) mmol/L Chloride 103 (96-108) mmol/L Carbon Dioxide 27 (22-30) mmol/L BUN 16 (8-23) mg/dl Creatinine 1.1 (0.7-1.2) mg/dl Glucose 131 H (70-105) mg/dL Calcium 8.8 (8.6-10.4) mg/dl AST 19 (0-37) U/l ALT 19 (0-40) U/l Alkaline Phosphatase 50 (39-117) U/L Total Protein 6.0 (5.9-8.4) gm/dL Albumin 2.9 L (3.2-5.2) gm/dL Triglycerides 149 (<150) mg/dl Calcium panel 05/14/17 Range/Units 04:47 Calcium 8.8 (8.6-10.4) mg/dl Phosphorus 3.7 (2.7-4.5) mg/dL Albumin 2.9 L (3.2-5.2) gm/dL Pituitary panel 05/14/17 Range/Units 04:47 Sodium 140 (133-145) mmol/L Potassium 4.0 (3.3-5.1) mmol/L Chloride 103 (96-108) mmol/L Carbon Dioxide 27 (22-30) mmol/L BUN 16 (8-23) mg/dl Creatinine 1.1 (0.7-1.2) mg/dl Glucose 131 H (70-105) mg/dL Calcium 8.8 (8.6-10.4) mg/dl Adrenal panel 05/14/17 Range/Units 04:47 Sodium 140 (133-145) mmol/L Potassium 4.0 (3.3-5.1) mmol/L Chloride 103 (96-108) mmol/L Carbon Dioxide 27 (22-30) mmol/L BUN 16 (8-23) mg/dl Creatinine 1.1 (0.7-1.2) mg/dl Glucose 131 H (70-105) mg/dL Calcium 8.8 (8.6-10.4) mg/dl Total Bilirubin 0.3 (0.0-1.0) mg/dL AST 19 (0-37) U/l ALT 19 (0-40) U/l Alkaline Phosphatase 50 (39-117) U/L Total Protein 6.0 (5.9-8.4) gm/dL Albumin 2.9 L (3.2-5.2) gm/dL Assessment and Plan (1) Sepsis due to cellulitis Status: Acute Current Visit: Yes (2) Sepsis due to cellulitis Problem details: Patient with preexisting co morbidities, uncontrolled diabetes and is on anticoagulants with plavix. Status: Acute Current Visit: Yes - Time Spent With Patient Total time spent is greater than 50% in coordination of care (as documented) at patient's floor/unit and/or counseling patient: Assessment PO Day # 2 Progressing well. Dressings changed.Wound management reviewed with ANALIA Larsonnurse behavioral health care nurse and with Dr. Thomas Gotti, Sales And Marketing Administrator Foot and Ankle Surgeon. Will transfer patient care to Dr. Gotti. Plan: OR cancelled. To continue with HBOT. Consult Dr. Thomas Gotti for transfer of post surgical foot care . 15 - 24 minutes
--- NOTE | 2017-05-14 12:11 | Internal Med Progress Note ---
Medical - PN: Subj Patient information: Note initiated : 05/14/17 at 12:11 pm Service Date, if different from initiated Date: [] Patient: Cecy Mendoza 66 y/o M admitted on 05/10/17 for Toe Wound/Cellulitis& Gangrene of Lt 2nd Toe,Sepsis. Chief Complaint: [] Interval history: May 10, 2017: History of present illness: Mr. Mendoza is a 66 year old man who apparently visited with podiatry 4 days ago for a callus on his foot, and had that filed down. Over the last 2 or 3 days she has had increased swelling of his foot and second and third toes, and today the second toe was purple, so he presented to the emergency room for evaluation. The patient is a very poor historian. He says he has had a callus on the bottom of his foot with a hole in it for several weeks. He saw a filler in last week who filed it down, and he said he almost immediately started having pain and swelling by the next day. He has been keeping the foot elevated hoping that would help. When he awakened this morning his foot was even more swollen and red, and his second toe had turned blue. He says it has been quite painful for the past [address] into the emergency room he started to have bloody drainage from the toe. Otherwise, he does not think he has been having fever or chills. He does have intermittent headaches, for which she has been taking Tylenol and Aleve, but it is not clear how chronic those are. Patient does not have a primary care doctor. He says his previous doctor retired about 5 years ago and he never got a new doctor. He does check in with his bottom steep tender once a year or so. That is now Dr. Nobles over in [place]. He says no one has ever told him in the past that his blood sugar was elevated. Patient denies known history of diabetes, but ER evaluation reveals marked hyperglycemia and elevated hemoglobin A1c today. He otherwise denies skin changes, new ear symptoms or sinus symptoms, sore throat or cough, chest pain or palpitations. He does have mild dyspnea on exertion, which is chronic. He denies abdominal pain, nausea or vomiting, constipation or bright red blood per rectum. He notes he did have diarrhea about 2 weeks ago but that resolved. He denies dysuria. May 11: Today, the patient notes that he felt quite queasy after breakfast, and vomited his breakfast back up. Otherwise, he says he is feeling okay. Left foot pain is well controlled. He denies fever or chills, chest pain or palpitations, shortness of breath or cough , abdominal pain, diarrhea, dysuria. May 12: Today, the patient says he is feeling better. He has not had any further nausea or vomiting, however he is also n.p.o. prior to surgery. He is having less pain in his foot, which he now rates as a 2 out of 10. He denies fever chills, chest pain or palpitations, shortness of breath, abdominal pain, nausea or vomiting, diarrhea or constipation or dysuria. -He says so far he is tolerating the oral diabetic meds, and has learned how to check his blood sugar and inject insulin. He does not feel it is too overwhelming. Accu-Cheks are ranging from about 172-270 currently. May 13: The patient says he is feeling fine today. He has had hyperbaric treatment twice today. He is not having any particular pain in his foot. Otherwise he denies fever chills, chest pain or palpitations, shortness of breath, abdominal pain, nausea or vomiting or diarrhea. Accu-Cheks are ranging from 207- 251. May 14: The patient says he is doing well today. He is having much less pain and swelling of his foot. He denies fever chills. He was seen by both and Dr. Gotti of the wound care team today. The plan is to continue with IV antibiotics, local wound care, and hyperbaric oxygen. Per Dr. Gotti, he may require skin grafting and wound VAC eventually. The patient says he is tolerating oral diabetes medications and also has learned to check his sugar and administer insulin. Otherwise, the patient denies fever or chills, chest pain or shortness of breath , abdominal pain, nausea or vomiting, diarrhea or constipation or dysuria. - Constitutional Vitals: Vital Signs Temp Pulse Resp BP Pulse Ox 98.2 F 68 20 140/75 93 05/14/17 11:50 05/14/17 11:50 05/14/17 11:50 05/14/17 11:50 05/14/17 11:50 Period Temp Pulse Resp BP Sys/Buchanan Pulse Ox Last 24 Hr 97.3 F-98.2 F 64-68 20-20 117-148/64-76 93-97 Intake and Output 05/13/17 05/14/17 05/14/17 21:59 05:59 13:59 Intake Total 1770 / 1770 1225 / 1225 1510 / 1510 Output Total 1450 / 1450 975 / 975 775 / 775 Balance 320 / 320 250 / 250 735 / 735 Weight 285 lb 8 oz Intake & Output: Intake & Output 05/13/17 05/14/17 05/14/17 21:59 05:59 13:59 Intake Total 1770 / 1770 1225 / 1225 1510 / 1510 Output Total 1450 / 1450 975 / 975 775 / 775 Balance 320 / 320 250 / 250 735 / 735 Weight 285 lb 8 oz Intake: IV 50 / 50 600 / 600 1510 / 1510 Zosyn 3.375 gm In Dextrose 5% 50 / 50 100 / 100 in Water 50 ml @ 100 mls/hr IV Q6H [facility] Rx#:[id number] Potassium Chloride 20 Meq In 1010 / 1010 Sodium Chloride 0.45% 1,000 ml @ 125 mls/hr IV .Q8H5M [facility] Rx#: [id number] Vancomycin 1,500 mg In Sodium 500 / 500 500 / 500 Chloride 0.9% 500 ml @ 333.3 mls/hr IV Q12H [facility] Rx#: [id number] Oral 1720 / 1720 625 / 625 Output: Urine Catheter Amount 750 / 750 Void Amount 700 / 700 975 / 975 775 / 775 Other: Meal Lunch Percent of Meal Consumed 100% # Voids 1 1 1 # Bowel Movements 1 Neck is supple without obvious lymphadenopathy or JVD. Cardiac exam shows regular rate and rhythm. Lungs are clear to auscultation. Abdomen is obese, but soft and nontender. Extremities: Right foot appears normal. Left foot: Has a large gaping wound where the second toe used to be. The wound is clean, without odor. It was recently undressed by the surgeons, and left open to air, pending further wound care. Neurologic exam is grossly nonfocal. Medical - PN: Obj Da - Labs CBC & Chem 7: 05/14/17 04:47 05/14/17 04:47 Labs: Abnormal Lab Results 05/14/17 05/14/17 05/13/17 04:47 04:47 04:59 WBC RBC 3.74 L Hgb 11.7 L Hct 34.1 L MPV 7.2 L Gran % Lymph % (Auto) Eos % (Auto) 7.7 H Gran # Lymph # (Auto) [place] # (Auto) Glucose 131 H 215 H Calcium C-Reactive Protein 7.1 H 16.6 H Albumin 2.9 L 2.7 L Albumin/Globulin Ratio 0.9 L 0.8 L Urine Occult Blood Urine RBC 05/13/17 05/12/17 05/12/17 04:59 04:05 04:05 WBC 11.9 H RBC 3.75 L 3.73 L Hgb 11.7 L 11.9 L Hct 33.6 L 34.1 L MPV 7.3 L Gran % 79.5 H Lymph % (Auto) 10.7 L Eos % (Auto) Gran # 9.4 H Lymph # (Auto) 1.3 L [place] # (Auto) 1.0 H 1.0 H Glucose 169 H Calcium 8.5 L C-Reactive Protein 22.9 H Albumin 2.8 L Albumin/Globulin Ratio 0.9 L Urine Occult Blood Urine RBC 05/12/17 02:50 WBC RBC Hgb Hct MPV Gran % Lymph % (Auto) Eos % (Auto) Gran # Lymph # (Auto) [place] # (Auto) Glucose Calcium C-Reactive Protein Albumin Albumin/Globulin Ratio Urine Occult Blood 0.2 A Urine RBC 6 H May 14: Accu-Cheks are ranging from 127 -164 Blood cultures from May 10 are negative so far. May 10: CBC: White blood cell count 11,800, hematocrit 39, platelets 264,000. 83% neutrophils. 1+ polychromasia Pro time 14, INR 1.1 next Lactic acid is normal at 1.7 Hemoglobin A1c elevated at 9.1% CRP is elevated at 29 TSH normal at 1.42 Gram stain of toe discharge: Is rare polys, many red blood cells, rare gram- positive cocci in pairs. Culture shows strep agalactiae group B, 2 strains. 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 Signs of osteomyelitis. Meds: Medications Acetaminophen (Tylenol) 650 mg PO Q6HP PRN PRN Reason: PAIN/FEVER > 101 Albuterol Sulfate (Ventolin) 2.5 mg NEB Q2HP PRN PRN Reason: Shortness Of Breath Calcium Carbonate/Glycine (Tums) 1,000 mg CHEWED Q4HP PRN PRN Reason: Dyspepsia Clopidogrel Bisulfate (Plavix) 75 mg PO DAILY [facility] Last Admin: 05/14/17 08:24 Dose: 75 mg Dextrose (Dextrose 50%) 0 ml IV UD PRN PRN Reason: Hypoglycemia Diagnostic Test (Pha) (Accu-Chek) 1 each FS ACHS [facility] Last Admin: 05/14/17 11:35 Dose: 1 each Docusate Sodium (Colace) 100 mg PO BID PRN PRN Reason: Constipation Glipizide (Glucotrol) 2.5 mg PO BIDAC [facility] Last Admin: 05/14/17 07:31 Dose: 2.5 mg Glucose (Insta-Glucose) 15 gm PO PRN PRN PRN Reason: Hypoglycemia Hydromorphone HCl (Dilaudid) 0.5 mg IV Q6HP PRN PRN Reason: PAIN LEVEL > 6 Last Admin: 05/14/17 09:25 Dose: 0.5 mg Piperacillin Sod/Tazobactam (Sod 3.375 gm/ Dextrose) 50 mls @ 100 mls/hr IV Q6H [facility] Last Admin: 05/14/17 11:38 Dose: 100 mls/hr Vancomycin HCl 1,500 mg/ (Sodium Chloride) 500 mls @ 333.3 mls/hr IV Q12H [facility] Last Infusion: 05/14/17 11:00 Dose: Infused Gentamicin Sulfate 40 mg/Clindamycin Phosphate 300 mg/Bacitracin 25,000 unit/ Sodium Chloride 503 mls @ 0 mls/hr IRR BID [facility] PRN Reason: As Directed Insulin Glargine (Lantus) 5 unit SQ BID [facility] Insulin Human Lispro (Humalog) 0 unit SQ ACHS [facility] PRN Reason: Protocol Last Admin: 05/14/17 11:37 Dose: Not Given Losartan Potassium (Cozaar) 100 mg PO DAILY [facility] Last Admin: 05/14/17 08:24 Dose: 100 mg Magnesium Hydroxide (Milk Of Magnesia) 30 ml PO DAILYP PRN PRN Reason: Constipation [facility] Last Admin: 05/14/17 07:31 Dose: 500 mg Metoprolol Succinate (Toprol Xl) 12.5 mg PO DAILY [facility] Last Admin: 05/14/17 08:24 Dose: 12.5 mg Ondansetron HCl (Zofran) 4 mg IV Q6HP PRN PRN Reason: Nausea And Vomiting Last Admin: 05/11/17 07:37 Dose: 4 mg Oxycodone/Acetaminophen (Percocet 5-325 Mg) 1 - 2 tab PO Q4HP PRN PRN Reason: PAIN LEVEL 3-6 Last Admin: 05/14/17 01:02 Dose: 2 tab Simvastatin (Zocor) 40 mg PO HS [facility] Last Admin: 05/13/17 20:41 Dose: 40 mg Sodium Chloride (Saline Flush) 10 ml IV Q8 [facility] Last Admin: 05/14/17 05:19 Dose: Not Given Vancomycin HCl (Vancomycin Per Pharmacy) 1 order IV UD [facility] Zolpidem Tartrate (Ambien) 5 mg PO HSP PRN PRN Reason: Insomnia Last Admin: 05/13/17 20:53 Dose: 5 mg Medical - PN: A/P - Time Spent With Patient Total time spent is greater than 50% in coordination of care (as documented) at patient's floor/unit and/or counseling patient: 25 - 35 minutes (1) Cellulitis in diabetic foot Status: Acute Current Visit: Yes (2) New onset type 2 diabetes mellitus Status: Acute Current Visit: Yes (3) Coronary artery disease Status: Chronic Current Visit: Yes (4) Hypertension Status: Chronic Current Visit: Yes (5) Obesity (BMI 30-39.9) Status: Chronic Current Visit: Yes - Narrative A/P Narrative: #1. Infectious disease. Patient presents with signs and symptoms of acute foot cellulitis, likely related to recent podiatric surgery. He had gangrene of the second toe. Is now status post amputation of that toe, with other debridement. - He is undergoing hyperbaric treatments. -Continue IV antibiotics, Zosyn plus vancomycin pending cultures.. -Wound care -Serial labs. Surgery continues to follow, and they are discussing future skin graft with or without wound VAC. 2. Endocrine. Patient presents with previously undiagnosed diabetes, likely type II, with marked hyperglycemia and associated pseudohyponatremia. -Patient was started on Lantus and sliding scale. He is now on both metformin and glipizide. Accu-Cheks are much closer to normal now. Hopefully over the next couple of days we can wean him off of the insulin. -diabetes education, nutrition education. -Obesity should also be addressed. 3. Cardiac. History of coronary disease and hypertension. -Continue losartan, metoprolol, Zocor. - said we do not need to hold his Plavix. . -Patient reports he also takes a baby aspirin every day. -Hypertension. Continue above medications . Monitor. 4. CODE STATUS: Full code. His will act as his POA. 5. DVT prophylaxis: Subcu heparin. 6. Obesity Patient is at increased risk for obesity related illnesses, such as sleep apnea. He is strongly encouraged to establish care with a new primary care physician, and to have testing for this. #7. GI. Patient has not had further nausea and vomiting. Approximately 30 minutes was spent today, reviewing test results, interviewing and examining the patient, reviewing his case with and Dr. Gotti , and writing orders.. Medical - PN: Qual - VTE Deep Vein Thrombosis/Pulmonary Embolism Present on Admission: No
[2017-05-14] MEDS: GENTAMICIN SULFATE 40 MG, CLINDAMYCIN 300 MG, BACITRACIN 25,000 UNIT in SODIUM CHLORIDE... IRR SCH ×2 (13:00→22:25)
--- NOTE | 2017-05-14 16:04 | Orthopedic Consult Note ---
History of Present Illness - [facility] Patient information: Note initiated : 05/14/17 at 4:00 pm Service Date, if different from initiated Date: [] Patient: Cecy Mendoza 66 y/o M admitted on 05/10/17 for Toe Wound/Cellulitis& Gangrene of Lt 2nd Toe,Sepsis. Chief Complaint: [foot infection] Consult date: 05/14/17 Requesting physician: Bryon Pringle Consult reason: other (foot infection) History of present illness: This patient was seen by his foot physician. The callus on the bottom of the left second metatarsal phalangeal joint was debrided. Soon after the toe and surrounding area of the foot turned black and blue discoloration. patient is having a throbbing type pain. He says is about a 5 out of 10 with possible 9 and 10 on occasion. This has been present for about a week. Nothing makes it feel better, although feels somewhat better after the surgery. He doesn't have any fever chills nausea vomiting. Dr. Pringle was consult and performed a fasciotomy with digit amputation. Being of the patient is diabetic he is concerned about the healing potential of this foot. Review of Systems Constitutional: as per [facility] Medications and Allergies Home Medications Medication Instructions Recorded Confirmed Type Aspirin [Adult Low Dose Aspirin EC] 81 mg PO DAILY 05/10/17 05/10/17 History Clopidogrel Bisulfate [Plavix] 75 mg PO DAILY 05/10/17 05/10/17 History Losartan Potassium [Cozaar] 100 mg PO DAILY 05/10/17 05/10/17 History Metoprolol Succinate [Toprol Xl] 12.5 mg PO DAILY 05/10/17 05/10/17 History Simvastatin [Zocor] 40 mg PO HS 05/10/17 05/10/17 History Allergies Allergy/AdvReac Type Severity Reaction Status Date / Time No Known Drug Allergies Allergy Unverified 05/10/17 11:06 Physical Examination - Ankle & Foot left Foot appearance: other (open wound of left second metatarsal distal with an dictation site of the toe. Status post amputation second toe. This is a non- malodorous wound with no necrotic tissue. Fresh bleeding tissue present at the periphery of this wound. This measures with the deficit of approximate 4 x 2 cm in total size with a 2 cm depth. There is no bone exposed. The area is actively bleeding.) Assessment and Plan (1) Diabetic foot infection Status: Acute Priority: Medium Comment: 05/14/2017: Status post indication left second digit. There is an open deficits after the procedure. This will likely be closed after eradication of infection via application of skin graft and wound VAC. Dressings changed with Dr. Pringle today while discussing case. Will follow on daily basis. Continue antibiotics and hyperbaric therapy while inpatient.
[2017-05-14] MEDS: SIMVASTATIN 40 MG TABLET PO SCH (22:04)
[2017-05-14] MEDS: INSULIN GLARGINE, HUMAN 1 UNIT/0.01 ML SQ SCH (22:24)
[2017-05-14] MEDS: ZOLPIDEM 5 MG TABLET PO PRN (23:54)
[2017-05-15] MEDS: PIPERACILLIN SODIUM/TAZOBACTAM 3.375 GM in DEXTROSE 5% IN WATER 50 ML IV SCH ×3 (05:36→20:22)
[2017-05-15] MEDS: 0.9 % SODIUM CHLORIDE 10 ML SYRINGE IV SCH ×3 (05:41→22:37)
[2017-05-15] MEDS: metFORMIN 500 MG TABLET PO SCH ×2 (07:31→17:22)
[2017-05-15] MEDS: glipiZIDE 5 MG TAB.XL.24H PO SCH (07:31)
--- NOTE | 2017-05-15 07:52 | Orthopedic Progress Note ---
Subjective Patient information: Note initiated : 05/15/17 at 7:50 am Service Date, if different from initiated Date: [] Patient: Cecy Mendoza 66 y/o M admitted on 05/10/17 for Toe Wound/Cellulitis& Gangrene of Lt 2nd Toe,Sepsis. Chief Complaint: [left foot infection] Principal diagnosis: left foot gas gangrene Interval history: resting comfortably. Only minor pain coming from the foot. No fever chills nausea vomiting shortness of breath or other concerns at this time. Pertinent ROS: no fever chills nausea joints of breath diarrhea Objective Vital signs: Vital Signs Temp Pulse Resp BP BP Pulse Ox 05/15/17 03:40 97.5 F 73 16 162/74 97 05/15/17 00:00 97.9 F 77 16 148/66 96 05/14/17 20:00 98.2 F 67 16 154/68 97 05/14/17 16:00 98.5 F 20 154/84 96 05/14/17 12:00 96 05/14/17 11:50 98.2 F 68 20 140/75 93 05/14/17 08:00 96 05/14/17 07:55 97.3 F 20 139/76 97 Intake and Output 05/14/17 05/15/17 05/15/17 21:59 05:59 13:59 Intake Total 50 / 50 1100 / 1100 Output Total 1820 / 1820 575 / 575 Balance -1770 / -1770 525 / 525 Intake: IV 50 / 50 50 / 50 Zosyn 3.375 gm In Dextrose 5% 50 / 50 50 / 50 in Water 50 ml @ 100 mls/hr IV Q6H [facility] Rx#:[id number] Oral 1050 / 1050 Output: Void Amount 1820 / 1820 575 / 575 Other: Meal Lunch Percent of Meal Consumed 100% # Voids 1 1 # Bowel Movements 1 Weight 286 lb Intake & Output: Intake & Output 05/14/17 05/15/17 05/15/17 21:59 05:59 13:59 Intake Total 50 / 50 1100 / 1100 Output Total 1820 / 1820 575 / 575 Balance -1770 / -1770 525 / 525 Weight 286 lb Intake: IV 50 / 50 50 / 50 Zosyn 3.375 gm In Dextrose 5% 50 / 50 50 / 50 in Water 50 ml @ 100 mls/hr IV Q6H [facility] Rx#:[id number] Oral 1050 / 1050 Output: Void Amount 1820 / 1820 575 / 575 Other: Meal Lunch Percent of Meal Consumed 100% # Voids 1 1 # Bowel Movements 1 Incision: Yes draining, Yes red Incision clean and dry: Yes Dressing: Yes clean, Yes dry, Yes intact Weight bearing status: partial (heel touch only, left foot) - Periperhal Pulses Peripheral pulses: 1+: dorsalis pedis (L), dorsalis pedis (R), posterior tibialis (L), posterior tibialis (R) - Diagnostic Results Ankle x-ray: image reviewed (indication of left second digit and partial amp rotation of left second metatarsal through surgical neck. Soft tissue deficit also appreciated at this location to the level of the surgical neck. No signs of gas gangrene or calcification of vessels.) - Labs CBC & BMP: 05/14/17 04:47 05/14/17 04:47 Labs: Orthopedic Labs 05/10/17 10:43 PT 14.2 INR 1.1 05/14/17 05/13/17 05/12/17 04:47 04:59 04:05 Hgb 11.7 L 11.7 L 11.9 L Hct 34.1 L 33.6 L 34.1 L 05/11/17 05/10/17 04:00 10:54 Hgb 12.0 L 13.6 Hct 34.9 L 39.5 L Assessment and Plan (1) Diabetic foot infection Status: Acute Priority: Medium Comment: 05/15/17: Patient seen at bedside he is in good spirits this date. He understands treatment plan. He agrees that outpatient therapy would be ideal if possible. He understands wound VAC is meniscus posterior do as far as reduction of bacterial load and aiding in granulation of tissue with aiding perfusion as well. He is comfortable continuing hyperbaric therapy if needed. Initiate wound VAC change every other day and is needed due to bleeding Arrange for at home therapy with wound VAC changes and outpatient hyperbaric therapy. May be able to discharge in the next 24-48 hours assuming outpatient care is set up and wound VAC is stable 05/14/2017: Status post gas infection left second digit. There is an open deficits after the procedure. This will likely be closed after eradication of infection via application of skin graft and wound VAC. Dressings changed with Dr. Pringle today while discussing case. Will follow on daily basis. Continue antibiotics and hyperbaric therapy while inpatient.
--- NOTE | 2017-05-15 08:05 | XRay Report ---
HISTORY: Reason for Exam:evaluate metatarsal after amputation, left second FINDINGS: The second toe and head of the second metatarsal been surgically resected. There is gas in the soft tissues at the operative site due to the preceding surgery. The remainder the foot is normal, except for mild arthritis around the ankle and a calcaneal spur.. IMPRESSION: Normal postoperative changes following resection of the second toe Interpreted and Authenticated by: Troy Smith 05/15/17
[2017-05-15] MEDS: INSULIN LISPRO 1 UNIT/0.01 ML UNIT SQ SCH ×4 (08:08→21:07)
[2017-05-15] MEDS: INSULIN GLARGINE, HUMAN 1 UNIT/0.01 ML SQ SCH ×2 (10:34→21:08)
--- NOTE | 2017-05-15 11:01 | Internal Med Progress Note ---
Medical - PN: Subj Patient information: Note initiated : 05/15/17 at 11:01 am Service Date, if different from initiated Date: [] Patient: Cecy Mendoza 66 y/o M admitted on 05/10/17 for Toe Wound/Cellulitis& Gangrene of Lt 2nd Toe,Sepsis. Chief Complaint: [] Interval history: May 10, 2017: History of present illness: Mr. Mendoza is a 66 year old man who apparently visited with podiatry 4 days ago for a callus on his foot, and had that filed down. Over the last 2 or 3 days she has had increased swelling of his foot and second and third toes, and today the second toe was purple, so he presented to the emergency room for evaluation. The patient is a very poor historian. He says he has had a callus on the bottom of his foot with a hole in it for several weeks. He saw a tombstone erector last week who filed it down, and he said he almost immediately started having pain and swelling by the next day. He has been keeping the foot elevated hoping that would help. When he awakened this morning his foot was even more swollen and red, and his second toe had turned blue. He says it has been quite painful for the past [address] into the emergency room he started to have bloody drainage from the toe. Otherwise, he does not think he has been having fever or chills. He does have intermittent headaches, for which she has been taking Tylenol and Aleve, but it is not clear how chronic those are. Patient does not have a primary care doctor. He says his previous doctor retired about 5 years ago and he never got a new doctor. 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 That is now Dr. Nobles over in [place]. He says no one has ever told him in the past that his blood sugar was elevated. Patient denies known history of diabetes, but ER evaluation reveals marked hyperglycemia and elevated hemoglobin A1c today. He otherwise denies skin changes, new ear symptoms or sinus symptoms, sore throat or cough, chest pain or palpitations. He does have mild dyspnea on exertion, which is chronic. He denies abdominal pain, nausea or vomiting, constipation or bright red blood per rectum. He notes he did have diarrhea about 2 weeks ago but that resolved. He denies dysuria. May 11: Today, the patient notes that he felt quite queasy after breakfast, and vomited his breakfast back up. Otherwise, he says he is feeling okay. Left foot pain is well controlled. He denies fever or chills, chest pain or palpitations, shortness of breath or cough , abdominal pain, diarrhea, dysuria. May 12: Today, the patient says he is feeling better. He has not had any further nausea or vomiting, however he is also n.p.o. prior to surgery. He is having less pain in his foot, which he now rates as a 2 out of 10. He denies fever chills, chest pain or palpitations, shortness of breath, abdominal pain, nausea or vomiting, diarrhea or constipation or dysuria. -He says so far he is tolerating the oral diabetic meds, and has learned how to check his blood sugar and inject insulin. He does not feel it is too overwhelming. Accu-Cheks are ranging from about 172-270 currently. May 13: The patient says he is feeling fine today. He has had hyperbaric treatment twice today. He is not having any particular pain in his foot. Otherwise he denies fever chills, chest pain or palpitations, shortness of breath, abdominal pain, nausea or vomiting or diarrhea. Accu-Cheks are ranging from 207- 251. May 14: The patient says he is doing well today. He is having much less pain and swelling of his foot. He denies fever chills. He was seen by both and Dr. Gotti of the wound care team today. The plan is to continue with IV antibiotics, local wound care, and hyperbaric oxygen. Per Dr. Gotti, he may require skin grafting and wound VAC eventually. The patient says he is tolerating oral diabetes medications and also has learned to check his sugar and administer insulin. Otherwise, the patient denies fever or chills, chest pain or shortness of breath , abdominal pain, nausea or vomiting, diarrhea or constipation or dysuria. May 15: Today, the patient says he is feeling well. He says he is tolerating diabetes medications well. He has been up walking and seems to be doing okay with that. His pain in his foot is controlled. He otherwise denies fever chills, chest pain or shortness of breath, abdominal pain, or other GI or symptoms. - Constitutional Vitals: Vital Signs Temp Pulse Resp BP Pulse Ox 97.6 F 71 16 107/82 95 05/15/17 07:52 05/15/17 08:15 05/15/17 07:52 05/15/17 07:52 05/15/17 08:15 Period Temp Pulse Resp BP Sys/Buchanan Pulse Ox Last 24 Hr 97.5 F-98.5 F 67-77 16-20 107-162/66-84 93-97 Intake and Output 05/14/17 05/15/17 05/15/17 21:59 05:59 13:59 Intake Total 50 / 50 1100 / 1100 Output Total 1820 / 1820 575 / 575 Balance -1770 / -1770 525 / 525 Weight 286 lb Intake & Output: Intake & Output 05/14/17 05/15/17 05/15/17 21:59 05:59 13:59 Intake Total 50 / 50 1100 / 1100 Output Total 1820 / 1820 575 / 575 Balance -1770 / -1770 525 / 525 Weight 286 lb Intake: IV 50 / 50 50 / 50 Zosyn 3.375 gm In Dextrose 5% 50 / 50 50 / 50 in Water 50 ml @ 100 mls/hr IV Q6H [facility] Rx#:[id number] Oral 1050 / 1050 Output: Void Amount 1820 / 1820 575 / 575 Other: Meal Lunch Percent of Meal Consumed 100% # Voids 1 1 # Bowel Movements 1 Sitting up on the side of his bed, and seems in good spirits. Neck is supple without obvious lymphadenopathy or JVD. Cardiac exam shows regular rate and rhythm. Lungs are clear to auscultation. Abdomen is obese, but soft and nontender. Extremities: Right foot appears normal. Left foot: Is heavily bandaged. Dressing is clean and dry. He is in a walking shoe. Neurologic exam is grossly nonfocal. Medical - PN: Obj Da - Labs CBC & Chem 7: 05/14/17 04:47 05/14/17 04:47 Labs: Abnormal Lab Results 05/14/17 05/14/17 05/13/17 04:47 04:47 04:59 WBC RBC 3.74 L Hgb 11.7 L Hct 34.1 L MPV 7.2 L Gran % Lymph % (Auto) Eos % (Auto) 7.7 H Gran # Lymph # (Auto) Vernon # (Auto) Glucose 131 H 215 H C-Reactive Protein 7.1 H 16.6 H Albumin 2.9 L 2.7 L Albumin/Globulin Ratio 0.9 L 0.8 L 05/13/17 04:59 WBC 11.9 H RBC 3.75 L Hgb 11.7 L Hct 33.6 L MPV Gran % 79.5 H Lymph % (Auto) 10.7 L Eos % (Auto) Gran # 9.4 H Lymph # (Auto) 1.3 L Vernon # (Auto) 1.0 H Glucose C-Reactive Protein Albumin Albumin/Globulin Ratio May 14: Accu-Cheks are ranging from 127 -164 Blood cultures from May 10 are negative so far. May 10: CBC: White blood cell count 11,800, hematocrit 39, platelets 264,000. 83% neutrophils. 1+ polychromasia Pro time 14, INR 1.1 next Lactic acid is normal at 1.7 Hemoglobin A1c elevated at 9.1% CRP is elevated at 29 TSH normal at 1.42 Gram stain of toe discharge: Is rare polys, many red blood cells, rare gram- positive cocci in pairs. Culture shows strep agalactiae group B, 2 strains. 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 Signs of osteomyelitis. Meds: Medications Acetaminophen (Tylenol) 650 mg PO Q6HP PRN PRN Reason: PAIN/FEVER > 101 Albuterol Sulfate (Ventolin) 2.5 mg NEB Q2HP PRN PRN Reason: Shortness Of Breath Calcium Carbonate/Glycine (Tums) 1,000 mg CHEWED Q4HP PRN PRN Reason: Dyspepsia Clopidogrel Bisulfate (Plavix) 75 mg PO DAILY [facility] Last Admin: 05/14/17 08:24 Dose: 75 mg Dextrose (Dextrose 50%) 0 ml IV UD PRN PRN Reason: Hypoglycemia Diagnostic Test (Pha) (Accu-Chek) 1 each FS ACHS [facility] Last Admin: 05/15/17 07:32 Dose: 1 each Docusate Sodium (Colace) 100 mg PO BID PRN PRN Reason: Constipation Glipizide (Glucotrol Xl) 5 mg PO QAMAC [facility] Last Admin: 05/15/17 07:31 Dose: 5 mg Glucose (Insta-Glucose) 15 gm PO PRN PRN PRN Reason: Hypoglycemia Hydromorphone HCl (Dilaudid) 0.5 mg IV Q6HP PRN PRN Reason: PAIN LEVEL > 6 Last Admin: 05/14/17 09:25 Dose: 0.5 mg Piperacillin Sod/Tazobactam (Sod 3.375 gm/ Dextrose) 50 mls @ 100 mls/hr IV Q6H [facility] Last Admin: 05/15/17 05:36 Dose: 100 mls/hr Vancomycin HCl 1,500 mg/ (Sodium Chloride) 500 mls @ 333.3 mls/hr IV Q12H [facility] Last Admin: 05/14/17 22:04 Dose: 333 mls/hr Gentamicin Sulfate 40 mg/Clindamycin Phosphate 300 mg/Bacitracin 25,000 unit/ Sodium Chloride 503 mls @ 0 mls/hr IRR BID [facility] PRN Reason: As Directed Last Admin: 05/14/17 22:25 Dose: 1 mls/hr Insulin Glargine (Lantus) 5 unit SQ BID [facility] Last Admin: 05/14/17 22:24 Dose: 5 unit Insulin Human Lispro (Humalog) 0 unit SQ ACHS [facility] PRN Reason: Protocol Last Admin: 05/15/17 08:08 Dose: 1 unit Losartan Potassium (Cozaar) 100 mg PO DAILY [facility] Last Admin: 05/14/17 08:24 Dose: 100 mg Magnesium Hydroxide (Milk Of Magnesia) 30 ml PO DAILYP PRN PRN Reason: Constipation [facility] Last Admin: 05/15/17 07:31 Dose: 500 mg Metoprolol Succinate (Toprol Xl) 12.5 mg PO DAILY [facility] Last Admin: 05/14/17 08:24 Dose: 12.5 mg Ondansetron HCl (Zofran) 4 mg IV Q6HP PRN PRN Reason: Nausea And Vomiting Last Admin: 05/11/17 07:37 Dose: 4 mg Oxycodone/Acetaminophen (Percocet 5-325 Mg) 1 - 2 tab PO Q4HP PRN PRN Reason: PAIN LEVEL 3-6 Last Admin: 05/14/17 23:54 Dose: 1 tab Simvastatin (Zocor) 40 mg PO HS [facility] Last Admin: 05/14/17 22:04 Dose: 40 mg Sodium Chloride (Saline Flush) 10 ml IV Q8 [facility] Last Admin: 05/15/17 05:41 Dose: 10 ml Vancomycin HCl (Vancomycin Per Pharmacy) 1 order IV UD [facility] Zolpidem Tartrate (Ambien) 5 mg PO HSP PRN PRN Reason: Insomnia Last Admin: 05/14/17 23:54 Dose: 5 mg Medical - PN: A/P - Time Spent With Patient Total time spent is greater than 50% in coordination of care (as documented) at patient's floor/unit and/or counseling patient: 15 - 24 minutes (1) Cellulitis in diabetic foot Status: Acute Current Visit: Yes (2) New onset type 2 diabetes mellitus Status: Acute Current Visit: Yes (3) Coronary artery disease Status: Chronic Current Visit: Yes (4) Hypertension Status: Chronic Current Visit: Yes (5) Obesity (BMI 30-39.9) Status: Chronic Current Visit: Yes - Narrative A/P Narrative: #1. Infectious disease. Patient presents with signs and symptoms of acute foot cellulitis, likely related to recent podiatric surgery. He had gangrene of the second toe. Is now status post amputation of that toe, with other debridement. - He is undergoing hyperbaric treatments. -Continue IV antibiotics, Zosyn plus vancomycin pending cultures.. -Wound care -Serial labs. Surgery continues to follow, and they are discussing future skin graft with or without wound VAC. 2. Endocrine. Patient presents with previously undiagnosed diabetes, likely type II, with marked hyperglycemia and associated pseudohyponatremia. -Patient was started on Lantus and sliding scale. He is now on both metformin and glipizide. Accu-Cheks are much closer to normal now. Hopefully over the next couple of days we can wean him off of the insulin. -diabetes education, nutrition education. -Obesity should also be addressed. 3. Cardiac. History of coronary disease and hypertension. -Continue losartan, metoprolol, Zocor. - said we do not need to hold his Plavix. . -Patient reports he also takes a baby aspirin every day. -Hypertension. Continue above medications . Monitor. 4. CODE STATUS: Full code. His will act as his POA. 5. DVT prophylaxis: Subcu heparin. 6. Obesity Patient is at increased risk for obesity related illnesses, such as sleep apnea. He is strongly encouraged to establish care with a new primary care physician, and to have testing for this. #7. GI. Patient has not had further nausea and vomiting. Approximately 20 minutes was spent today, reviewing test results, interviewing and examining the patient, reviewing his case with staff. Medical - PN: Qual - VTE Deep Vein Thrombosis/Pulmonary Embolism Present on Admission: No
[2017-05-15] MEDS: LOSARTAN 50 MG TABLET PO SCH (11:19)
[2017-05-15] MEDS: CLOPIDOGREL 75 MG TABLET PO SCH (11:19)
[2017-05-15] MEDS: METOPROLOL SUCCINATE 25 MG TAB.XL.24H PO SCH (11:20)
[2017-05-15] MEDS: VANCOMYCIN 1,500 MG in 0.9 % SODIUM CHLORIDE 500 ML IV SCH ×2 (11:20→20:51)
[2017-05-15] MEDS: GENTAMICIN SULFATE 40 MG, CLINDAMYCIN 300 MG, BACITRACIN 25,000 UNIT in SODIUM CHLORIDE... IRR SCH ×2 (11:37→21:42)
--- NOTE | 2017-05-15 13:31 | Surgical Pathology Report ---
HISTOLOGY SPECIMEN MICROSCOPIC DIAGNOSIS SPECIMEN A - SOFT TISSUE, LEFT SECOND TOE TENDON, EXCISION: -- TENDON WITH MODERATE ACUTE AND CHRONIC INFLAMMATION. SPECIMEN B - DIGIT, LEFT SECOND TOE, AMPUTATION: -- GANGRENOUS NECROSIS OF SKIN AND SOFT TISSUE, EXTENDING TO SKIN AND SOFT TISSUE MARGINS. -- BONE WITH NO DIAGNOSTIC ALTERATIONS; NO OSTEOMYELITIS IDENTIFIED. -- BONY MARGIN VIABLE. SPECIMEN C - SOFT TISSUE, LEFT SECOND TOE, SUBMITTED "BLOOD CLOT", EXCISION: -- PREDOMINATELY FIBROADIPOSE AND VASCULAR TISSUE WITH MARKED ACUTE INFLAMMATION CONSISTENT WITH GANGRENOUS NECROSIS. SPECIMEN D - SOFT TISSUE, LEFT SECOND TOE, SUBMITTED "BLOOD CLOT", EXCISION: -- PREDOMINATELY FIBROADIPOSE AND VASCULAR TISSUE WITH MARKED ACUTE INFLAMMATION CONSISTENT WITH GANGRENOUS NECROSIS. (DMT:adj) PROCEDURAL IMPRESSION Left foot cellulitis. GROSS DESCRIPTION Specimen A: Received in formalin, labeled left second toe tendon, is a 2.7 x 1.4 x 1.2 cm portion of stewart-white irregular soft tissue. Clinical Nurse Occupational Medicine sections, including 50% of the specimen, are submitted in one cassette. Specimen B: Received in formalin, labeled left second toe, is an 8.5 cm long, up to 3.3 cm diameter portion of toe and distal foot. The toe itself is 4.1 cm long and up to 1.8 cm in diameter. The skin has sloughed off of the entire surface and the surface appears mottled, red-brown to brown-black. This tissue appears possibly non-viable, extending to the circumferential skin and soft tissue margins. The distal nail is present and is 0.9 cm long and up to 1.3 cm wide. The epidermis at the distal tip appears intact. The bone margin ends in a cut surface. The specimen is bisected and submitted for decalcification. Clinical Nurse Occupational Medicine sections are submitted as follows: B1 - bone margin; B2 - central toe; B3 - skin and soft tissue margins. Specimen C: Received in formalin, labeled left second toe blood clot, is a 2.4 x 1.3 x 0.4 cm aggregate of stewart-white to stewart-pink soft tissue. Entirely submitted in one cassette. Specimen D: Received in formalin, labeled left second toe blood clot, is a 2.3 x 1.4 x 0.5 cm aggregate of stewart-white to stewart-pink soft tissue. Entirely submitted in one cassette. (DMT:sln) Electronically Signed by: Jovany Ball M.D.
[2017-05-15] MEDS: oxyCODONE/APAP 5/325MG TABLET PO PRN ×2 (15:50→22:35)
[2017-05-15] MEDS: SIMVASTATIN 40 MG TABLET PO SCH (21:15)
[2017-05-15] MEDS: ZOLPIDEM 5 MG TABLET PO PRN (22:35)
[2017-05-16] MEDS: PIPERACILLIN SODIUM/TAZOBACTAM 3.375 GM in DEXTROSE 5% IN WATER 50 ML IV SCH ×3 (00:24→11:51)
[2017-05-16] MEDS: 0.9 % SODIUM CHLORIDE 10 ML SYRINGE IV SCH (05:52)
[2017-05-16] MEDS: INSULIN LISPRO 1 UNIT/0.01 ML UNIT SQ SCH ×2 (07:47→11:52)
[2017-05-16] MEDS: metFORMIN 500 MG TABLET PO SCH (07:48)
[2017-05-16] MEDS: glipiZIDE 5 MG TAB.XL.24H PO SCH (07:48)
[2017-05-16] MEDS: METOPROLOL SUCCINATE 25 MG TAB.XL.24H PO SCH (08:14)
[2017-05-16] MEDS: CLOPIDOGREL 75 MG TABLET PO SCH (08:14)
[2017-05-16] MEDS: LOSARTAN 50 MG TABLET PO SCH (08:14)
[2017-05-16] MEDS: INSULIN GLARGINE, HUMAN 1 UNIT/0.01 ML SQ SCH (08:14)
[2017-05-16] MEDS: VANCOMYCIN 1,500 MG in 0.9 % SODIUM CHLORIDE 500 ML IV SCH (09:56)
--- NOTE | 2017-05-16 10:26 | Discharge Summary ---
Medical - DS: Prov Patient information: Note initiated : 05/16/17 at 10:26 am Service Date, if different from initiated Date: [] Patient: Cecy Mendoza 66 y/o M admitted on 05/10/17 for Toe Wound/Cellulitis& Gangrene of Lt 2nd Toe,Sepsis. Chief Complaint: [] Date of admission: 05/10/17 14:39 Discharge date: 05/16/17 Primary care physician: Please make a follow-up appointment with Dr. Mary Leung. Staff will give you her phone number. You may also want to call Dr. Michelle Garza, as I understand she takes care of your . She may be willing to take you on as a new patient. Admitting clinician: Deanna Grant Consults: 05/10/17 11:42 Consult to Physician [CONS] Stat Comment: Consulting Provider: Bryon Pringle Reason For Exam: Physician to Consult 05/10/17 11:43 Consult to Physician [CONS] Stat Comment: Consulting Provider: Deanna Grant Reason For Exam: Physician to Consult 05/14/17 11:01 Consult to Physician [CONS] Routine Comment: Further post operative FOOT care Left foot. Consulting Provider: Thomas Gotti Reason For Exam: Physician to Consult: Continuity of care Attending physician on discharge: Deanna Grant Medical - DS: Meds - Discharge Medications Prescriptions: Accu-Chek 1 each FS ACHS #100 strip Amoxicillin/Potassium Clav [Augmentin] 875 mg PO Q12H 14 Days #28 tab Ciprofloxacin [Cipro] 500 mg PO BID 14 Days #28 tab glipiZIDE [Glucotrol Xl] 5 mg PO QAMAC #30 tab.xl.24h Insulin Glargine,Hum.rec.anlog [Lantus Solostar] 8 unit SQ QAM #1 insuln.pen LORazepam [Ativan] 0.5 mg PO QDP PRN #30 tab PRN Reason: Anxiety metFORMIN [Glucophage] 500 mg PO BIDCC #60 tab oxyCODONE/APAP [Percocet 5-325 mg] 1 - 2 tab PO Q4HP PRN #30 tab PRN Reason: Pain Active and Home Medications: Discharge medications: Ciprofloxacin 500 mg p.o. twice daily for foot wound Augmentin 875 mg p.o. twice daily for foot wound Lantus insulin pen, use 8 units subcu every morning. If any blood glucoses are lower than 80, cut this dose in half. Glucotrol XL (glipizide) 5 mg every morning before meals Metformin 500 mg p.o. twice daily with meals Tylenol 650 mg every 6 hours as needed mild pain Percocet (oxycodone) 1-2 tabs every 6 hours for uncontrolled pain as needed Tums one every 4 hours as needed for indigestion Clopidogrel/Plavix 75 mg daily Colace 100 mg p.o. twice daily as needed constipation Glucose tabs, or orange juice, as needed for glucose less than 70 with symptoms Losartan 100 mg daily Milk of magnesia 30 mL daily as needed constipation Metoprolol succinate 12.5 mg daily Simvastatin 40 mg p.o. nightly Previous home Medications: Aspirin [Adult Low Dose Aspirin EC] 81 mg PO DAILY 05/10/17 [History Confirmed 05/10/17 Last Taken 05/09/17] Clopidogrel Bisulfate [Plavix] 75 mg PO DAILY 05/10/17 [History Confirmed Last Taken 05/09/17] Losartan Potassium [Cozaar] 100 mg PO DAILY 05/10/17 [History Confirmed Last Taken 05/09/17] Metoprolol Succinate [Toprol Xl] 12.5 mg PO DAILY 05/10/17 [History Confirmed Last Taken 05/09/17] Simvastatin [Zocor] 40 mg PO HS 05/10/17 [History Confirmed 05/10/17 Last Taken 05/09/17] Medical - DS: Hosp Hospital course: Mr. Mendoza is a 66 year old M May 10, 2017: History of present illness: Mr. Mendoza is a 66 year old man who apparently visited with podiatry 4 days ago for a callus on his foot, and had that filed down. Over the last 2 or 3 days she has had increased swelling of his foot and second and third toes, and today the second toe was purple, so he presented to the emergency room for evaluation. The patient is a very poor historian. He says he has had a callus on the bottom of his foot with a hole in it for several weeks. He saw a archives specialist last week who filed it down, and he said he almost immediately started having pain and swelling by the next day. He has been keeping the foot elevated hoping that would help. When he awakened this morning his foot was even more swollen and red, and his second toe had turned blue. He says it has been quite painful for the past [address] into the emergency room he started to have bloody drainage from the toe. Otherwise, he does not think he has been having fever or chills. He does have intermittent headaches, for which she has been taking Tylenol and Aleve, but it is not clear how chronic those are. Patient does not have a primary care doctor. He says his previous doctor retired about 5 years ago and he never got a new doctor. 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 That is now Dr. Nobles over in [place]. He says no one has ever told him in the past that his blood sugar was elevated. Patient denies known history of diabetes, but ER evaluation reveals marked hyperglycemia and elevated hemoglobin A1c today. He otherwise denies skin changes, new ear symptoms or sinus symptoms, sore throat or cough, chest pain or palpitations. He does have mild dyspnea on exertion, which is chronic. He denies abdominal pain, nausea or vomiting, constipation or bright red blood per rectum. He notes he did have diarrhea about 2 weeks ago but that resolved. He denies dysuria. May 11: Today, the patient notes that he felt quite queasy after breakfast, and vomited his breakfast back up. Otherwise, he says he is feeling okay. Left foot pain is well controlled. He denies fever or chills, chest pain or palpitations, shortness of breath or cough , abdominal pain, diarrhea, dysuria. May 12: Today, the patient says he is feeling better. He has not had any further nausea or vomiting, however he is also n.p.o. prior to surgery. He is having less pain in his foot, which he now rates as a 2 out of 10. He denies fever chills, chest pain or palpitations, shortness of breath, abdominal pain, nausea or vomiting, diarrhea or constipation or dysuria. -He says so far he is tolerating the oral diabetic meds, and has learned how to check his blood sugar and inject insulin. He does not feel it is too overwhelming. Accu-Cheks are ranging from about 172-270 currently. ............................ May 16, 2017: Hospital course: -The patient was admitted and started on Zosyn and vancomycin to cover his diabetic foot wound. He underwent surgery with , to remove the gangrenous toe and surrounding infected tissue. He is now receiving local wound care, and had a wound VAC applied yesterday. He has also been receiving hyperbaric treatments. He will plan to discharge this afternoon, and then follow-up at the wound care clinic on Friday, for wound check, and hyperbaric treatment. Wound VAC is likely to be placed at that time as well -Patient was also diagnosed with new onset diabetes at the time of admission. Hemoglobin A1c was 9.1% at the time of admission, with a glucose of 330. Patient was subsequently started on twice daily metformin and twice daily glipizide, as well as twice daily Lantus. Glucoses have come down nicely, and the last 3 year ranging from 130- 202. The patient has learned to check his blood sugar and administer his own insulin, and seems to understand the diabetes education he has received. -Today, he says he feels well. His foot pain is relatively well controlled. He otherwise denies fever chills, chest pain or shortness of breath, GI or symptoms. On exam, is lying in bed. He is in no acute distress. Neck is supple without obvious lymphadenopathy or JVD. Cardiac exam shows regular rate and rhythm. Lungs are clear to auscultation. Abdomen is obese, but soft and nontender. Extremities: Right foot appears normal. Left foot: Is heavily bandaged. Dressing is clean and dry. He is in a walking shoe. Neurologic exam is grossly nonfocal. A/P Narrative: #1. Infectious disease. Patient presents with signs and symptoms of acute foot cellulitis, likely related to recent podiatric surgery. He had gangrene of the second toe. Is now status post amputation of that toe, with other debridement. -As noted above, patient will be discharged home today, on oral antibiotics, ciprofloxacin and Augmentin. -Podiatry has instructed him in wound care. -Patient will return on Friday to the wound care clinic, for wound check, and follow-up hyperbaric treatment, and likely wound VAC placement for home. 2. Endocrine. Patient presents with previously undiagnosed diabetes, likely type II, with marked hyperglycemia and associated pseudohyponatremia. -Patient was started on Lantus and sliding scale. He is now on both metformin and glipizide. Accu-Cheks are much closer to normal now. His glucoses are not quite as well-controlled as I would like to see, so I have elected to leave him on once daily Lantus, in addition to Metformin and glipizide. He is asked to check his blood sugars before meals and at bedtime and keep a diary, and take all that information into his new primary care physician at follow-up. -diabetes education, nutrition education. -Obesity should also be addressed. 3. Cardiac. History of coronary disease and hypertension. -Continue losartan, metoprolol, Zocor, Plavix. - -Patient reports he also takes a baby aspirin every day. -Hypertension. Continue above medications . Monitor. 4. CODE STATUS: Full code. His will act as his POA. 5. DVT prophylaxis: Subcu heparin. 6. Obesity Patient is at increased risk for obesity related illnesses, such as sleep apnea. He is strongly encouraged to establish care with a new primary care physician, and to have testing for this. #7. GI. Patient has not had further nausea and vomiting. Discharge diagnosis: Diabetic foot infection with toe gangrene. New-onset type 2 diabetes - Time Spent with Patient Total time spent providing and/or coordinating discharge services: Greater than 30 minutes Medical - DS: Exam - Constitutional Vitals: Vital Signs Temp Pulse Resp BP BP Pulse Ox 05/16/17 06:19 98.1 F 20 152/73 93 05/16/17 04:00 98.8 F 66 18 147/77 95 05/15/17 23:06 98.1 F 60 16 147/76 96 05/15/17 20:00 98.4 F 63 16 162/87 96 05/15/17 16:00 98.4 F 72 16 155/76 93 05/15/17 12:00 98.0 F 16 155/77 93 Intake and Output 05/15/17 05/16/17 05/16/17 21:59 05:59 13:59 Intake Total 100 / 100 1150 / 1150 1090 / 1090 Output Total 1500 / 1500 800 / 800 600 / 600 Balance -1400 / -1400 350 / 350 490 / 490 Intake: IV 100 / 100 550 / 550 50 / 50 Zosyn 3.375 gm In Dextrose 5% 100 / 100 50 / 50 50 / 50 in Water 50 ml @ 100 mls/hr IV Q6H [facility] Rx#:[id number] Vancomycin 1,500 mg In Sodium 500 / 500 Chloride 0.9% 500 ml @ 333.3 mls/hr IV Q12H [facility] Rx#: [id number] Oral 600 / 600 1040 / 1040 Output: Void Amount 1500 / 1500 800 / 800 600 / 600 Other: Meal Breakfast Percent of Meal Consumed 75% Feeding Ability Assist with Tray Set Up Weight 283 lb Medical - DS: Data Labs on day of discharge: Labs from last 24 hours 05/16/17 07:58 Vancomycin Trough 16.0 Preliminary micro results at discharge 05/12/17 13:11 Anaerobic Culture - Preliminary Toe - Second 05/12/17 13:11 Anaerobic Culture - Preliminary Toe - Second May 14: Accu-Cheks are ranging from 127 -164 next CRP is down to 7.1 from 22.9. CBC: White blood cell count 8000, hemoglobin 11, hematocrit 34, platelets 338 Chemistry panel: Is essentially normal, glucose 131. Albumin is 2.9. Blood cultures from May 10 are negative so far. Next May 12: Urinalysis: Shows 0.2 occult blood, 6 red blood cells, otherwise normal May 10: CBC: White blood cell count 11,800, hematocrit 39, platelets 264,000. 83% neutrophils. 1+ polychromasia Chemistry panel: Sodium 132, potassium 4.1, chloride 96, bicarb 22, anion gap 14 , BUN 10, creatinine 0.8, glucose 330 Pro time 14, INR 1.1 next Lactic acid is normal at 1.7 Hemoglobin A1c elevated at 9.1% CRP is elevated at 29 TSH normal at 1.42 Gram stain of toe discharge: Is rare polys, many red blood cells, rare gram- positive cocci in pairs. Culture shows strep agalactiae group B, 2 strains. 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 Signs of osteomyelitis. Medical - DS: A/P - Patient/Caregiver Discharge Instructions Activity: increase activity as tolerated, as instructed (Wound care and other foot issues as per your wound care doctors.) Diet: Consistent Carbohydrate Additional Instructions: 1. Type 2 diabetes. You have been started on metformin, glipizide, Lantus insulin (glargine). Please take these as directed. If your blood sugars start to run lower than 80, please cut the Lantus dose in half, or discontinue. Please check your blood sugar 3-4 times a day, checking both before and after meals and at bedtime. Please keep a diary of these, and take this diary with you to your new primary care doctor appointment. We will give you a prescription for a glucometer and supplies. You may be able to get these through your insurance, but also consider that [email or web address] cells glucometers and strips [id number] for a very reasonable yung. 2. Diabetic foot infection, status post toe amputation. Per Dr. Gotti, podiatry:Patient to be discharged today after hyperbaric therapy around 3 to 4:00 PM. He has outpatient medications oral for Augmentin 875 twice a day 2 weeks and ciprofloxacin 500 mg twice a day 2 weeks as well. VAC changes are to be done Friday. He will obtain an outpatient wound VAC is for a follow-up visit Friday. #3. Coronary disease. Continue usual heart and blood pressure medications. Discharge medications: Ciprofloxacin 500 mg p.o. twice daily for foot wound Augmentin 875 mg p.o. twice daily for foot wound Lantus insulin pen, use 8 units subcu every morning. If any blood glucoses are lower than 80, cut this dose in half. Glucotrol XL (glipizide) 5 mg every morning before meals Metformin 500 mg p.o. twice daily with meals Lorazepam 0.5 mg. Take 1-2 tabs prior to hyperbaric treatments, as needed for claustrophobia. Tylenol 650 mg every 6 hours as needed mild pain Percocet (oxycodone) 1-2 tabs every 6 hours for uncontrolled pain as needed Tums one every 4 hours as needed for indigestion Clopidogrel/Plavix 75 mg daily Colace 100 mg p.o. twice daily as needed constipation Glucose tabs, or orange juice, as needed for glucose less than 70 with symptoms Losartan 100 mg daily Milk of magnesia 30 mL daily as needed constipation Metoprolol succinate 12.5 mg daily Simvastatin 40 mg p.o. nightly Previous home Medications: Aspirin [Adult Low Dose Aspirin EC] 81 mg PO DAILY 05/10/17 [History Confirmed 05/10/17 Last Taken 05/09/17] Clopidogrel Bisulfate [Plavix] 75 mg PO DAILY 05/10/17 [History Confirmed Last Taken 05/09/17] Losartan Potassium [Cozaar] 100 mg PO DAILY 05/10/17 [History Confirmed Last Taken 05/09/17] Metoprolol Succinate [Toprol Xl] 12.5 mg PO DAILY 05/10/17 [History Confirmed Last Taken 05/09/17] Simvastatin [Zocor] 40 mg PO HS 05/10/17 [History Confirmed 05/10/17 Last Taken 05/09/17] Prescriptions: Accu-Chek 1 each FS ACHS #100 strip Amoxicillin/Potassium Clav [Augmentin] 875 mg PO Q12H 14 Days #28 tab Ciprofloxacin [Cipro] 500 mg PO BID 14 Days #28 tab glipiZIDE [Glucotrol Xl] 5 mg PO QAMAC #30 tab.xl.24h Insulin Glargine,Hum.rec.anlog [Lantus Solostar] 8 unit SQ QAM #1 insuln.pen LORazepam [Ativan] 0.5 mg PO QDP PRN #30 tab PRN Reason: Anxiety metFORMIN [Glucophage] 500 mg PO BIDCC #60 tab oxyCODONE/APAP [Percocet 5-325 mg] 1 - 2 tab PO Q4HP PRN #30 tab PRN Reason: Pain Other Amb Orders: Walker Location: Determined By Patient - Problem Maintenance (1) Cellulitis in diabetic foot Status: Acute (2) New onset type 2 diabetes mellitus Status: Acute (3) Coronary artery disease Status: Chronic (4) Hypertension Status: Chronic (5) Obesity (BMI 30-39.9) Status: Chronic - Follow up Plan Follow up with: Mary Leung MD [Physician] - 05/21/17 3:30 pm (This is a one time hospital follow up visit. Please bring your photo ID and insurance cards and medication list. Please arrive 15 minutes early.) Thomas Gotti DPM [Physician] - 05/19/17 1:00 pm (Your [facility] appointment is at 1: 00 pm, please arrive 15 minutes early and bring in your paperwork. You will seed Dr. Gotti after your treatment.) Disposition: Home, Self-Care Prognosis: Good Rehab Potential: Good I certify that the patient requires SNF services: No Overall status at discharge: patient is progressing back to baseline Medical - DS: Qual - VTE Deep Vein Thrombosis/Pulmonary Embolism Present on Admission: No
--- NOTE | 2017-05-16 10:37 | Orthopedic Progress Note ---
Subjective Patient information: Note initiated : 05/16/17 at 10:34 am Service Date, if different from initiated Date: [] Patient: Cecy Mendoza 66 y/o M admitted on 05/10/17 for Toe Wound/Cellulitis& Gangrene of Lt 2nd Toe,Sepsis. Chief Complaint: [left foot infection] Principal diagnosis: left foot gas gangrene Interval history: no changes. no fever chills nausea or vomiting. Tolerating dressings just fine. Does have concerned about hyperbaric therapy as he has difficulty with claustrophobia. understands that he is to resume daily hyperbaric therapy Friday through Friday and have vacuum changes Friday and follow up in clinic on Friday Pertinent ROS: no fever chills nausea vomiting, moderate pain to the left foot. Objective Vital signs: Vital Signs Temp Pulse Resp BP BP Pulse Ox 05/16/17 06:19 98.1 F 20 152/73 93 05/16/17 04:00 98.8 F 66 18 147/77 95 05/15/17 23:06 98.1 F 60 16 147/76 96 05/15/17 20:00 98.4 F 63 16 162/87 96 05/15/17 16:00 98.4 F 72 16 155/76 93 05/15/17 12:00 98.0 F 16 155/77 93 Intake and Output 05/15/17 05/16/17 05/16/17 21:59 05:59 13:59 Intake Total 100 / 100 1150 / 1150 1090 / 1090 Output Total 1500 / 1500 800 / 800 600 / 600 Balance -1400 / -1400 350 / 350 490 / 490 Intake: IV 100 / 100 550 / 550 50 / 50 Zosyn 3.375 gm In Dextrose 5% 100 / 100 50 / 50 50 / 50 in Water 50 ml @ 100 mls/hr IV Q6H [facility] Rx#:[id number] Vancomycin 1,500 mg In Sodium 500 / 500 Chloride 0.9% 500 ml @ 333.3 mls/hr IV Q12H [facility] Rx#: [id number] Oral 600 / 600 1040 / 1040 Output: Void Amount 1500 / 1500 800 / 800 600 / 600 Other: Meal Breakfast Percent of Meal Consumed 75% Feeding Ability Assist with Tray Set Up Weight 283 lb Intake & Output: Intake & Output 05/15/17 05/16/17 05/16/17 21:59 05:59 13:59 Intake Total 100 / 100 1150 / 1150 1090 / 1090 Output Total 1500 / 1500 800 / 800 600 / 600 Balance -1400 / -1400 350 / 350 490 / 490 Weight 283 lb Intake: IV 100 / 100 550 / 550 50 / 50 Zosyn 3.375 gm In Dextrose 5% 100 / 100 50 / 50 50 / 50 in Water 50 ml @ 100 mls/hr IV Q6H [facility] Rx#:[id number] Vancomycin 1,500 mg In Sodium 500 / 500 Chloride 0.9% 500 ml @ 333.3 mls/hr IV Q12H [facility] Rx#: [id number] Oral 600 / 600 1040 / 1040 Output: Void Amount 1500 / 1500 800 / 800 600 / 600 Other: Meal Breakfast Percent of Meal Consumed 75% Feeding Ability Assist with Tray Set Up Incision: Yes clean and dry Incision clean and dry: Yes Dressing: Yes dry, Yes intact, Yes splint in place Weight bearing status: partial (to heel) - Periperhal Pulses Peripheral pulses: 1+: dorsalis pedis (L), dorsalis pedis (R), posterior tibialis (L), posterior tibialis (R) - Diagnostic Results Cervical AP/lateral x-ray: image reviewed - Labs CBC & BMP: 05/14/17 04:47 05/14/17 04:47 Labs: Orthopedic Labs 05/10/17 10:43 PT 14.2 INR 1.1 05/14/17 05/13/17 05/12/17 04:47 04:59 04:05 Hgb 11.7 L 11.7 L 11.9 L Hct 34.1 L 33.6 L 34.1 L 05/11/17 05/10/17 04:00 10:54 Hgb 12.0 L 13.6 Hct 34.9 L 39.5 L Assessment and Plan (1) Diabetic foot infection Status: Acute Priority: Medium Comment: 05/16/2017: Patient to be discharged today after hyperbaric therapy around 3 to 4:00 PM. He has outpatient medications oral for Augmentin 875 twice a day 2 weeks and ciprofloxacin 500 mg twice a day 2 weeks as well. VAC changes are to be done Friday. He will obtain an outpatient wound VAC is for a follow- up visit Friday. 05/15/17: Patient seen at bedside he is in good spirits this date. He understands treatment plan. He agrees that outpatient therapy would be ideal if possible. He understands wound VAC is meniscus posterior do as far as reduction of bacterial load and aiding in granulation of tissue with aiding perfusion as well. He is comfortable continuing hyperbaric therapy if needed. Initiate wound VAC change every other day and is needed due to bleeding Arrange for at home therapy with wound VAC changes and outpatient hyperbaric therapy. May be able to discharge in the next 24-48 hours assuming outpatient care is set up and wound VAC is stable 05/14/2017: Status post gas infection left second digit. There is an open deficits after the procedure. This will likely be closed after eradication of infection via application of skin graft and wound VAC. Dressings changed with Dr. Pringle today while discussing case. Will follow on daily basis. Continue antibiotics and hyperbaric therapy while inpatient.
[2017-05-16] MEDS ORDERED: LORazepam 1 MG TABLET PO ONE (10:45)
[2017-05-16] MEDS: GENTAMICIN SULFATE 40 MG, CLINDAMYCIN 300 MG, BACITRACIN 25,000 UNIT in SODIUM CHLORIDE... IRR SCH (11:51)
== END 2017-05-16 15:50 | disposition home or self-care (01) | DRG 854 ==
LOC: ED 10:13 → MEDSUR 14:39
PROVIDERS: ADMIT Specialist; ATTEND Internal Medicine